=== PATIENT | male | born 1975 ===

== ENCOUNTER 2020-07-16 15:55 | Outpatient (REF) | payer OTHER, SELFPAY | END 2020-07-16 15:56 | disposition home or self-care (01) | LOC: HO.LAB 15:55 | PROVIDERS: Visit Provider Internal Medicine | DX: Z20.828 Contact with and (suspected) exposure to other viral communicable diseases (principal) | CPT/HCPCS: C9803; U0003 ==

== ENCOUNTER 2020-10-01 09:04 | Outpatient (REF) | payer OTHER, SELFPAY | END 2020-10-01 09:05 | disposition home or self-care (01) | LOC: HO.LAB 09:04 | PROVIDERS: Visit Provider Internal Medicine | DX: Z20.822 Contact with and (suspected) exposure to COVID-19 (principal) | CPT/HCPCS: 36415; C9803; U0003; U0005 ==

== ENCOUNTER 2020-10-25 12:50 | Outpatient (REF) | payer OTHER, SELFPAY | END 2020-10-25 12:51 | disposition home or self-care (01) | LOC: HO.LAB 12:50 | PROVIDERS: Visit Provider Internal Medicine | DX: Z20.822 Contact with and (suspected) exposure to COVID-19 (principal) | CPT/HCPCS: 36415; C9803; U0003; U0005 ==

== ENCOUNTER 2021-02-25 07:54 | Emergency (ER) | payer SELFPAY ==
--- NOTE | ~2021-02-25 | XR_ITS ---
EXAMINATION: XR THORACIC SPINE CLINICAL INFORMATION: Upper back pain COMPARISON: None TECHNIQUE: 3 views of the thoracic spine were obtained. FINDINGS: Bone alignment is normal. No fracture or dislocation is seen. There is mild degenerative degenerative disc disease of the lower thoracic spine. Paraspinal soft tissues are unremarkable. XR/XR thoracic spine 3V IMPRESSION: Mild degenerative changes of the lower thoracic spine.
[2021-02-25 08:26] VITALS: BP 111/71; PULSE 47; RESP 16; TEMP 36.4; O2SAT 99; BMI 26.7
--- NOTE | 2021-02-25 08:57 | ED_ITS ---
HPI - Back Pain/Injury General Chief Complaint: Back Pain/Injury Stated Complaint: upper back pain Time Seen by Provider: 02/25/21 09:38 Source: patient Mode of arrival: ambulatory Limitations: no limitations History of Present Illness HPI Narrative: Patient presents to ED for upper back pain for a month that worsens yesterday was due to doing Martial arts.. Patient states for about 1 month having upper back pain on movement. 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 Patient states maybe pulled a muscle but just wanting to make sure there was no fracture in the spine. Patient does not want any pain medication. Patient denies being an IV drug user. Patient denies any urinary or bowel incontinence. Patient denies any recent blunt trauma to the back. Patient states no chest pain or shortness of breath. Patient denies any abdominal pain, dysuria, hematuria, flank pain, fever, or chills. Related Data Previous Rx's Medication Instructions Recorded naproxen 500 mg PO BID PRN #20 tab 02/25/21 Allergies Allergy/AdvReac Type Severity Reaction Status Date / Time No Known Allergies Allergy Unverified 04/29/20 15:40 [No Known Allergies*] Review of Systems Review of Systems: Yes all other systems are reviewed and are negative Constitutional: Constitutional: Reports as per HPI and Reports no additional constitutional complaints Eyes: Eyes: Reports as per HPI and Reports no additional eye complaints ENT: Reports system reviewed and no additional complaints, except as documented and Reports as per HPI Cardiovascular: Cardiovascular: Reports as per HPI and Reports no additional cardiovascular complaints Respiratory: Respiratory: Reports as per HPI and Reports no additional respiratory complaints Gastrointestinal: Gastrointestinal: Reports as per HPI and Reports no additional gastrointestinal complaints Genitourinary: Genitourinary: Reports no additional male genitourinary complaints and Reports as per HPI Musculoskeletal: Musculoskeletal: Reports no additional musculoskeletal complaints, Reports as per HPI and Reports back pain Neurologic: Reports system reviewed and no additional complaints, except as documented and Reports as per HPI Psychiatric: Psychiatric: Reports no additional psychiatric complaints and Reports as per HPI [facility] Past Medical History Medical History (Updated 02/25/21 @ 10:09 by JOSE M Can) No known health problems Social History Social History Alcohol intake: never Patient Tobacco Use Status: Never used Tobacco Use of substances other than those prescribed or required for medical reasons: No Advance Directives: No Advance Directives Information Provided: No Physical Exam Vital Signs: Vital Signs: Last Vital Signs Temp 98.7 F 02/25/21 10:02 Pulse 43 L 02/25/21 10:02 Resp 16 02/25/21 10:02 BP 105/70 02/25/21 10:02 Pulse Ox 99 02/25/21 10:02 Body Mass Index 26.7 Const: General: cooperative, healthy appearing, comfortable, no acute distress, well developed, alert and awake Orientation/consciousness: patient oriented x3 HENMT: Head: Yes normal to inspection, Yes No palpable skull fracture present, Yes normocephalic, Yes atraumatic and No abrasion Eyes: General: appearance normal, both eyes and all related structures Neck: Neck: Yes normal visual inspection, Yes full ROM, Yes no lymphadenopathy, Yes no meningeal signs, Yes trachea midline, Yes supple and No tender Chest: Chest palpation & inspection: normal inspection of the chest and normal palpation of entire chest wall Resp: Effort & Inspection: normal respiratory effort and able to speak in co mplete sentences Auscultation: clear to auscultation bilaterally Cardio: Jugular venous distension: no JVD Heart sounds: S1 normal heart sound present and S2 normal heart sound present GI: Inspection: Yes normal to inspection and No abdominal wall ecchymosis Palpation (GI): Soft to palpation, not firm, nontender, no guarding and not rigid : General: No CVA tenderness and Yes no CVA tenderness Back/Spine/Pelvis: Back: no CVA tenderness, No CVA tenderness and back tenderness (thoracic mild. ) Skin: General skin exam: no rashes or lesions noted and elasticity normal Neuro: General: patient oriented x3, gait normal, no meningeal signs and CN's II-XI intact bilaterally Cranial nerves: Yes CN's II-XII intact bilaterally Extrem: General: Yes normal to inspection and Yes full ROM Psych: Appearance: grossly normal, well kempt and not disheveled Course Course Course Narrative: Patient does not want any pain medication. Patient will have spine x-ray to rule out any fractures. Patient denies any history of drug use. not suspecting any epidural abscess. Reevaluation(s) Reevaluation #1: Patient x-ray shows thoracic degenerative disc disease. Patient heart rate still in the 40s. Patient states he runs a lot and works out alot. 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 Will do basic EKG Time: 10:08 Reevaluation #2: EKG shows sinus bradycardia. Heart Monitor patient in 40s. Patient states his heart rate has gone low as 30s in the past before and he is being evaluated by his primary care provider once again states he was told his heart rate was low due to is exercising and consistent running. Patient is safe for discharge. Patient is not dizzy or having any other symptoms Time: 10:16 MDM - Back Pain/Injury MDM Narrative Medical decision making narrative: Thoracic Discharge Plan Discharge Clinical Impression: Radiculopathy, thoracic region Patient Disposition: Home, Self-Care Instructions: Degenerative Disc Disease (ED) Additional Instructions: X-ray shows thoracic degenerative disc disease which is arthritis of the spine. Return to the ED immediately if back pain worsens, development of urinary/bowel incontinence, chest pain, shortness of breath, abdominal pain, dysuria, hematuria, flank pain, fever, chills, or any other concerning symptoms. Please follow up with PCP Prescriptions: New naproxen 500 mg tablet 500 mg PO BID PRN (Reason: pain) Qty: 20 RF: 0 Stand Alone Forms: Work/School Release Interventions: ED Discharge Assessment Last Done: 02/25/21 10:30 Discharge Date/Time: 02/25/21 10:33 Print Language: Hebrew
[2021-02-25 10:02] VITALS: BP 105/70; PULSE 43; RESP 16; TEMP 37.1; O2SAT 99
--- NOTE | 2021-02-25 10:09 | ECG_ITS ---
Test Reason : BRADYCARDIA Blood Pressure : / mmHG Vent. Rate : 036 BPM Atrial Rate : 036 BPM P-R Int : 142 ms QRS Dur : 086 ms QT Int : 464 ms P-R-T Axes : 014 066 059 degrees QTc Int : 358 ms Marked sinus bradycardia Abnormal ECG When compared with ECG of 27-SEP-2011 09:43, Vent. rate has decreased BY 22 BPM Nonspecific T wave abnormality no longer evident in Anterior leads QT has shortened Referred By: Rock Saucedo Electronically Signed By:Bronson Valle
== END 2021-02-25 10:33 | disposition home or self-care (01) ==
PROVIDERS: Emergency Provider Emergency Medicine
DX: M51.14 Intervertebral disc disorders with radiculopathy, thoracic region (principal); R00.1 Bradycardia, unspecified
CPT/HCPCS: 72072; 93005; 99283; 99284

== ENCOUNTER 2021-03-14 08:49 | Outpatient (REF) | payer OTHER, SELFPAY | END 2021-03-14 08:50 | disposition home or self-care (01) | LOC: HO.LAB 08:49 | PROVIDERS: Visit Provider Internal Medicine | DX: Z20.822 Contact with and (suspected) exposure to COVID-19 (principal) | CPT/HCPCS: C9803; U0003; U0005 ==

== ENCOUNTER 2021-04-19 11:35 | Outpatient (REF) | payer OTHER, SELFPAY | END 2021-04-19 11:36 | disposition home or self-care (01) | LOC: HO.LAB 11:35 | PROVIDERS: Visit Provider Internal Medicine | DX: Z20.822 Contact with and (suspected) exposure to COVID-19 (principal) | CPT/HCPCS: C9803; U0003; U0005 ==

== ENCOUNTER 2021-06-23 19:06 | Emergency (ER) | payer SELFPAY ==
--- NOTE | ~2021-06-23 | XR_ITS ---
EXAMINATION: XR SHOULDER, RIGHT CLINICAL INFORMATION: Evaluate for shoulder injury. COMPARISON: None TECHNIQUE: AP external rotation, Grashey, scapular Y, and axillary views of the right shoulder. FINDINGS: There is mild acromioclavicular osteoarthritis. Glenohumeral joint is well preserved. No fracture. Alignment is anatomic. Soft tissues are normal with no abnormal calcifications. XR/XR shoulder RT min 2V IMPRESSION: No acute fractures or malalignment. Mild degenerative osteoarthritis of the acromioclavicular joint.
[2021-06-23 19:09] VITALS: BP 128/78; PULSE 73; RESP 18; TEMP 36.8; O2SAT 99; BMI 26.6
--- NOTE | 2021-06-23 20:21 | ED.EXTPRO ---
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 He did not hear any pops or snaps during the roll but had pain in his right upper and anterior shoulder shortly after. He reports pain is worse with ROM, specifically abduction. 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 He denies weakness, numbness, tingling. No neck pain. MD Complaint: joint paint Onset (ago): day(s) (2) Pain Consistency: constant Location: right and upper extremity Severity scale (1-10): 7 Quality: aching and sharp Radiation: none Relieving factors: medication and rest Exacerbating factors: range of motion and palpation Associated symptoms: denies other symptoms Related Data Previous Rx's Medication Instructions Recorded naproxen 500 mg tablet 500 mg PO BID PRN #20 tab 02/25/21 cyclobenzaprine 10 mg tablet 10 mg PO TID PRN #8 tab 06/23/21 ibuprofen 600 mg tablet 600 mg PO Q8H PRN #20 tab 06/23/21 lidocaine 5 % topical patch 1 patch TOPICAL DAILY #15 ea 06/23/21 Allergies Allergy/AdvReac Type Severity Reaction Status Date / Time No Known Allergies Allergy Verified 06/23/21 19:09 [No Known Allergies*] Review of Systems Review of Systems: Constitutional: No Fever, No Chills Cardiovascular: No Chest Pain, No SOB Gastrointestinal: No Nausea, No Vomiting Musculoskeletal: + joint pain, No Myalgias Skin: No Skin Lesions, No rash Neuro: No Weakness, No Numbness Heme/Lymph: No Bruising, No Lymphadenopathy PMFSH Past Medical History Medical History (Updated 06/24/21 @ 00:02 by Background Daemon) No known health problems Social History Social History Alcohol intake: never Patient Tobacco Use Status: Never used Tobacco Advance Directives: No Advance Directives Information Provided: No Physical Exam Vital Signs: Vital Signs: Last Vital Signs Temp 98.3 F 06/23/21 19:09 Pulse 73 06/23/21 19:09 Resp 18 06/23/21 19:09 BP 128/78 06/23/21 19:09 Pulse Ox 99 06/23/21 19:09 Body Mass Index 26.6 Appearance: Alert. Oriented X3. No acute distress. HEENT: normal inspection CVS: Normal heart rate and rhythm. Pulses normal. Respiratory: No respiratory distress. Skin: Skin warm and dry. Normal skin color. Normal skin turgor. No rashes. Extremities: normal inspection of the right shoulder, tenderness to the AC joint with pain on passive and active abduction. NV intact distally. Normal strength of UE. No scapular tenderness. Neuro: Oriented X 3. No motor deficit. No sensory deficit. Course Course Course Narrative: 38-year-old male presenting with right-sided shoulder pain after he rolled on it 2 days ago. He has tenderness over the AC joint on the lateral aspect of the shoulder. Pain with Abduction. X-ray showing some mild osteoarthritis but no acute fracture or dislocation. No AC joint separation. Given his pain limited range of motion will placed in sling for comfort. Will give NSAID for symptomatic relief and have him follow-up with orthopedics for further evaluation. Patient is agreeable with plan is stable for discharge home. Discharge Plan Discharge Clinical Impression: Acute shoulder pain Patient Disposition: Home, Self-Care Instructions: Shoulder Sprain (ED), Shoulder Pain (ED) Additional Instructions: Your x-ray today showed mild osteoarthritis. No acute fracture or dislocation. Recommend rest and immobilization with a sling provided for the next 2 days. Take the prescribed anti-inflammatory around the clock for the next 2 days, take with food. Recommend following with orthopedics for further evaluation. Limit use and lifting with the right arm until evaluated by orthopedics. If you develop new or worsening symptoms call 911 or come back to the ER for further evaluation. Prescriptions: New cyclobenzaprine 10 mg tablet 10 mg PO TID PRN (Reason: muscle spasm) Qty: 8 RF: 0 ibuprofen 600 mg tablet 600 mg PO Q8H PRN (Reason: pain) Qty: 20 RF: 0 lidocaine 5 % adhesive patch,medicated 1 patch topical DAILY Qty: 15 RF: 0 No Action naproxen 500 mg tablet 500 mg PO BID PRN (Reason: pain) Qty: 20 RF: 0 Referrals: Giuliana Marrufo PA-C [Phys[facility]] - 2 days (right shoulder pain ) Stand Alone Forms: Work/School Release Interventions: ED Discharge Assessment Last Done: 06/23/21 20:50 Discharge Date/Time: 06/23/21 20:53
== END 2021-06-23 20:53 | disposition home or self-care (01) ==
PROVIDERS: Emergency Provider Internal Medicine
DX: M25.511 Pain in right shoulder (principal)
CPT/HCPCS: 73030; 96372; 99284

== ENCOUNTER 2021-10-18 09:00 | Emergency (ER) | payer SELFPAY ==
[2021-10-18 11:10] VITALS: BP 133/84; PULSE 73; RESP 18; TEMP 37.6; O2SAT 97; BMI 26.6
== END 2021-10-18 11:43 | disposition left against medical advice (07) ==
PROVIDERS: Emergency Provider Emergency Medicine
DX: M79.605 Pain in left leg (principal)
CPT/HCPCS: 99281; 99282

== ENCOUNTER 2022-07-03 12:50 | Emergency (ER) | payer SELFPAY ==
--- NOTE | ~2022-07-03 | CT_ITS ---
EXAMINATION: CT HEAD WITHOUT CONTRAST CLINICAL INFORMATION: Mid back of the head. Headache with concussion. COMPARISON: None TECHNIQUE: Contiguous axial imaging was performed from the skull base to vertex without intravenous administration of contrast. This CT examination was performed using dose optimization techniques as appropriate, variously including the following: *Automated exposure control *Adjustment of mA and/or kV according to patient size (this includes techniques or standardized protocols for targeted exams where dose is matched to indication/reason for exam; i.e. extremities or head) *Use of iterative reconstruction technique DLP: 665 mGy-cm FINDINGS: There is no acute intra-axial, extra-axial bleed, masses or midline shift there is no acute infarction evolution. The stauffer to white matter difference is maintained normal. The lateral ventricles are symmetrical in size and configuration without enlargement. Bone windows reveal no calvarial abnormality. No scalp soft tissue abnormality seen. There is a moderate-sized polyp or retention cyst left and a small polyp right maxillary sinus. Rest of the paranasal sinuses are well-aerated and clear. CT/CT head/brain wo IV con IMPRESSION: 1. No acute intracranial process seen. 2. Bilateral maxillary sinus polyps or retention cysts.
--- NOTE | 2022-07-03 13:19 | ED.HEATRA ---
HPI - Head Injury General Chief complaint: Head Injury Stated complaint: head inj non wri Time Seen by Provider: 07/03/22 15:20 Related Data Previous Rx's Medication Instructions Recorded naproxen 500 mg tablet 500 mg PO BID PRN pain #20 tabs 02/25/21 cyclobenzaprine 10 mg tablet 10 mg PO TID PRN muscle spasm #8 06/23/21 tabs ibuprofen 600 mg tablet 600 mg PO Q8H PRN pain #20 tabs 06/23/21 lidocaine 5 % topical patch 1 patch topical DAILY #15 ea 06/23/21 Allergies Allergy/AdvReac Type Severity Reaction Status Date / Time No Known Allergies Allergy Verified 06/23/21 19:09 [No Known Allergies*] [facility] Past Medical History Medical History No known health problems Social History Social History Alcohol intake: former Patient Tobacco Use Status: Never used Tobacco Smoked in Last 30 Days: Yes Substance Use Type: Marijuana Advance Directives: No Advance Directives Information Provided: No Physical Exam Vital Signs: Vital Signs: Last Vital Signs Temp 96.8 F 07/03/22 13:20 Pulse 50 07/03/22 15:51 Resp 16 07/03/22 15:51 BP 129/66 07/03/22 15:51 Pulse Ox 99 07/03/22 15:51 O2 Del Method 07/03/22 15:51 BMI result Body Mass Index 26.6 Course Course Course Narrative: 47 year old male presents to the ED after hitting his head. 1/4 pack a day smoker otherwise healthy. He states he was working at [employer] and a 2 * 4 hit him in the head and has had dizziness since then. Migraine history he states he has had multiple concussions as well. HE takes tylenol for his head and excedrin migraine. He took tylenol this morning. Pain is similiar to previous migraines and concussion. No deficits. No fever chills cough. He has loss of appetite and nausea without vomiting Neuro exam normal. I will send for CT and give patient toradol while waiting. Medications Administered Discontinued Medications Generic Name Dose Route Start Last Admin Trade Name Freq PRN Reason Stop Dose Admin Sodium Chloride 1,000 mls @ 999 mls/hr 07/03/22 13:30 07/03/22 16:00 Ns IV 07/03/22 14:30 Not Given .Q1H1M GREG Ketorolac Tromethamine 15 mg 07/03/22 13:25 07/03/22 13:32 Ketorolac Tromethamine 30 Mg/Ml Vial IM 07/03/22 13:26 15 mg ONCE ONE Administration Discharge Plan Discharge Clinical Impression: Concussion without loss of consciousness Patient Disposition: Home, Self-Care Instructions: Concussion (ED) Additional Instructions: Limit screen time Get plenty of rest Avoid strenuous activities until your asymptomatic Return for worsening symptoms Prescriptions: No Action naproxen 500 mg tablet 500 mg PO BID PRN (Reason: pain) Qty: 20 0RF cyclobenzaprine 10 mg tablet 10 mg PO TID PRN (Reason: muscle spasm) Qty: 8 0RF ibuprofen 600 mg tablet 600 mg PO Q8H PRN (Reason: pain) Qty: 20 0RF lidocaine 5 % adhesive patch,medicated 1 patch topical DAILY Qty: 15 0RF Rx Instructions: leave on most painful area for up to 12 hrs Referrals: Physician,None [Primary Care Provider] - Stand Alone Forms: Work/School Release Interventions: ED Discharge Assessment Last Done: 07/03/22 16:02 Discharge Date/Time: 07/03/22 16:02
[2022-07-03 13:20] VITALS: BP 123/48; PULSE 51; RESP 198; TEMP 36; O2SAT 97; BMI 26.6
[2022-07-03] MEDS: Ketorolac Tromethamine 30 MG/ML VIAL 15 MG IM (13:32)
--- NOTE | 2022-07-03 15:49 | ED_ITS ---
HPI - Head Injury General Chief complaint: Head Injury Stated complaint: head inj non wri Time Seen by Provider: 07/03/22 15:20 Source: patient Mode of arrival: ambulatory Limitations: no limitations History of Present Illness HPI Narrative: 47-year-old male here with reports of headache, dizziness, photophobia, nausea and vomiting after head injury on Sunday. Patient reports a 4 x 4 being hit his head. No loss of consciousness. Initially at headache with some nausea and vomiting and light sensitivity. Symptoms are improving the patient still has mild headache and nausea. No neck pain, weakness, numbness, tingling. No chest pain or abdominal pain. Patient has history of multiple concussions in the past Related Data Previous Rx's Medication Instructions Recorded naproxen 500 mg tablet 500 mg PO BID PRN pain #20 tabs 02/25/21 cyclobenzaprine 10 mg tablet 10 mg PO TID PRN muscle spasm #8 06/23/21 tabs ibuprofen 600 mg tablet 600 mg PO Q8H PRN pain #20 tabs 06/23/21 lidocaine 5 % topical patch 1 patch topical DAILY #15 ea 06/23/21 Allergies Allergy/AdvReac Type Severity Reaction Status Date / Time No Known Allergies Allergy Verified 06/23/21 19:09 [No Known Allergies*] Review of Systems Review of Systems: Yes all other systems are reviewed and are negative Constitutional: Constitutional: Reports no additional constitutional complaints, Denies body ache(s), Denies chills, Denies fever(s), Reports headache(s) and Denies weakness Eyes: Eyes: Reports no additional eye complaints, Denies change in vision and Reports photophobia ENT: Reports system reviewed and no additional complaints, except as documented, Reports dizziness, Reports headache(s), Denies nasal congestion, Denies nasal discharge and Denies neck pain Cardiovascular: Cardiovascular: Reports no additional cardiovascular complaints, Denies chest pain, Denies leg edema and Denies dyspnea Respiratory: Respiratory: Reports no additional respiratory complaints, Denies cough and Denies dyspnea Gastrointestinal: Gastrointestinal: Reports no additional gastrointestinal complaints, Denies abdominal pain, Denies diarrhea, Reports nausea and Reports vomiting Genitourinary: Genitourinary: Denies urinary incontinence Musculoskeletal: Musculoskeletal: Reports no additional musculoskeletal complaints, Denies back pain, Denies arthralgias, Denies joint swelling, Denies neck pain, Denies numbness and Denies tingling Integumentary/Breasts: Skin/Breast: Reports system reviewed and no additional complaints, except as docu and Denies rash Neurologic: Reports system reviewed and no additional complaints, except as documented, Denies Abnormal speech present, Reports dizziness, Reports headache(s), Denies numbness, Denies tingling and Denies weakness PMFSH Past Medical History Attestation statement: The following information was validated with the patient. Source: old records reviewed and nursing notes reviewed Medical History No known health problems Social History Social History Alcohol intake: former Patient Tobacco Use Status: Never used Tobacco Smoked in Last 30 Days: Yes Substance Use Type: Marijuana Advance Directives: No Advance Directives Information Provided: No Physical Exam Vital Signs: Vital Signs: Last Vital Signs Temp 96.8 F 07/03/22 13:20 Pulse 50 07/03/22 15:51 Resp 16 07/03/22 15:51 BP 129/66 07/03/22 15:51 Pulse Ox 99 07/03/22 15:51 O2 Del Method 07/03/22 15:51 BMI result Body Mass Index 26.6 Const: General: cooperative, healthy appearing, comfortable and no acute distress Orientation/consciousness: patient oriented x3 Limitations: no limitations HEENT: Head: Yes normal to inspection Ears: hearing grossly normal bilaterally and TM's normal bilaterally General nose exam: Normal external nose present Face and sinus: Yes normal facial exam Mouth: Normal oral and palatal mucosa present Throat: Yes posterior oropharynx normal, Yes tonsils normal and Yes uvula midline Eyes: General: appearance normal, both eyes and all related structures Pupils: Equal, round and reactive pupils present Direct Ophthalmoscopy: photophobia Neck: Neck: Yes normal visual inspection, Yes full ROM, Yes no lymphadenopathy and Yes no meningeal signs Chest: Chest palpation & inspection: normal inspection of the chest Resp: Effort & Inspection: normal respiratory effort Auscultation: clear to auscultation bilaterally Cardio: Rate: regular rate Rhythm: regular rhythm Peripheral pulses: Peripheral pulses 2+ throughout GI: Inspection: Yes normal to inspection Palpation (GI): Soft to palpation and nontender Auscultation: normal bowel sounds Back/Spine/Pelvis: Thoracic/Lumbar Spine: thoracic and lumbar spine normal to inspection Skin: General skin exam: no rashes or lesions noted Neuro: General: patient oriented x3, moves all extremities, no meningeal signs, no focal motor deficits and normal sensation to monofilament Cranial nerves: Yes CN's II-XII intact bilaterally, Yes Equal, round and reactive pupils present, Yes Bilaterally intact EOM present, Yes Nystagmus not present, Yes Normal facial strength present and Yes Midline tongue present Cognition (Neuro): normal cognition Speech: No Abnormal speech present Gait exam (Neuro): Normal gait present Motor exam (neuro): 5/5 motor strength present throughout Sensory Exam: Normal double simultaneous stimulation for sensation Extrem: General: Yes normal to inspection Course Course Course Narrative: CT head negative for infection. Likely concussion. Patient is tolerating p.o. Reviewed head injury care at home. Reviewed worrisome signs and symptoms of when to return to the emergency room. Comfortable plan for discharge home. Medications Administered Discontinued Medications Generic Name Dose Route Start Last Admin Trade Name Freq PRN Reason Stop Dose Admin Sodium Chloride 1,000 mls @ 999 mls/hr 07/03/22 13:30 07/03/22 16:00 Ns IV 07/03/22 14:30 Not Given .Q1H1M GREG Ketorolac Tromethamine 15 mg 07/03/22 13:25 07/03/22 13:32 Ketorolac Tromethamine 30 Mg/Ml Vial IM 07/03/22 13:26 15 mg ONCE ONE Administration MDM - Head Injury MDM Narrative Medical decision making narrative: This is a 47-year-old male with history of multiple concussions who presents with headache, nausea, vomiting, dizziness, photophobia after head injury which occurred Sunday. On arrival normal neuro exam. No focal deficits. Will check CT head to rule out intracranial hemorrhage. Likely concussion Medical Records Attestation: I reviewed the patient's medical records. Lab Data Attestation: I reviewed the patient's lab results. Imaging Data CT scan - head: Attestation: I personally reviewed and interpreted this imaging study as follows: Radiologist's impression: [address] [address] [address] Scan Report Signed Patient: Roger Ni MR#: [id number] : 1975 Acct:[id number] Age/Sex: 47 / M ADM Date: 07/03/22 Loc: HO.ED Attending Dr: Ordering Physician: Danial Perry DO Date of Service: 07/03/22 Procedure(s): CT head/brain wo IV con Accession Number(s): [id number] cc: Danial Perry DO~ EXAMINATION: CT HEAD WITHOUT CONTRAST CLINICAL INFORMATION: Mid back of the head. Headache with concussion.? COMPARISON: None TECHNIQUE: Contiguous axial imaging was performed from the skull base to vertex without intravenous administration of contrast. This CT examination was performed using dose optimization techniques as appropriate, variously including the following: *Automated exposure control *Adjustment of mA and/or kV according to patient size (this includes techniques or standardized protocols for targeted exams where dose is matched to indication/reason for exam; i.e. extremities or head) *Use of iterative reconstruction technique DLP: 665 mGy-cm FINDINGS: There is no acute intra-axial, extra-axial bleed, masses or midline shift there is no acute infarction evolution. The stauffer to white matter difference is maintained normal. The lateral ventricles are symmetrical in size and configuration without enlargement. Bone windows reveal no calvarial abnormality. No scalp soft tissue abnormality seen. There is a moderate-sized polyp or retention cyst left and a small polyp right maxillary sinus. Rest of the paranasal sinuses are well-aerated and clear. ? CT/CT head/brain wo IV con IMPRESSION: 1.? No acute intracranial process seen. 2.? Bilateral maxillary sinus polyps or retention cysts. ? Discharge Plan Discharge Clinical Impression: Concussion without loss of consciousness Patient Disposition: Home, Self-Care Instructions: Concussion (ED) Additional Instructions: Limit screen time Get plenty of rest Avoid strenuous activities until your asymptomatic Return for worsening symptoms Prescriptions: No Action naproxen 500 mg tablet 500 mg PO BID PRN (Reason: pain) Qty: 20 0RF cyclobenzaprine 10 mg tablet 10 mg PO TID PRN (Reason: muscle spasm) Qty: 8 0RF ibuprofen 600 mg tablet 600 mg PO Q8H PRN (Reason: pain) Qty: 20 0RF lidocaine 5 % adhesive patch,medicated 1 patch topical DAILY Qty: 15 0RF Rx Instructions: leave on most painful area for up to 12 hrs Referrals: Physician,None [Primary Care Provider] - Stand Alone Forms: Work/School Release Interventions: ED Discharge Assessment Last Done: 07/03/22 16:02 Discharge Date/Time: 07/03/22 16:02
[2022-07-03 15:51] VITALS: BP 129/66; PULSE 50; RESP 16; O2SAT 99
--- NOTE | 2022-07-03 15:57 | PC.NURSE ---
patient a/ox4 . madhurla . heart rate regular at 50 beats per minute . lungs clear throughout . patient has been to [facility] for images , results pending . provider at bedside . skin pink warm and dry . abdomen soft not tender . positive bowel sounds in all four quadrants . full range of motion in all extremities . patient aware of plan of care .
--- NOTE | 2022-07-03 16:00 | PC.NURSE ---
patient a/ox4 . VSS . breathing even and unlabored . went over discharge instructions as ordered by provider . patient to return if symptoms worsen . patient currently has no primary care provider given list of providers currently accepting patients . patient has no questions at this time .
== END 2022-07-03 16:02 | disposition home or self-care (01) ==
PROVIDERS: Emergency Provider Emergency Medicine
DX: S06.0X0A Concussion without loss of consciousness, initial encounter (principal); W22.8XXA Striking against or struck by other objects, initial encounter; Y93.89 Activity, other specified; Y92.9 Unspecified place or not applicable; Y99.9 Unspecified external cause status
CPT/HCPCS: 70450; 96372; 99284; J1885

== ENCOUNTER 2023-01-16 18:21 | Emergency (ER) | payer SELFPAY ==
--- NOTE | ~2023-01-16 | CT_ITS ---
EXAMINATION: CT head/brain wo IV con CLINICAL INFORMATION: Reason for Exam head trauma, headache COMPARISON: CT head without contrast 07/03/2022 TECHNIQUE: Contiguous axial imaging was performed from the skull base to vertex without intravenous contrast. Sagittal and coronal reformatted images were obtained. This CT examination was performed using dose optimization techniques as appropriate, variously including the following: * Automated exposure control * Adjustment of mA and/or kV according to patient size (this includes techniques or standardized protocols for targeted exams where dose is matched to indication/reason for exam; i.e. extremities or head) Use of iterative reconstruction technique DLP: 591.67 mGy-cm FINDINGS: No acute osseous or soft tissue abnormality. The mastoids are clear. Left maxillary sinus mucous retention cyst. There is no evidence of acute intracranial hemorrhage or territorial infarction. No abnormal mass effect or midline shift is seen. Waterman to white matter differentiation is well preserved. No extra-axial fluid collections are identified. No hydrocephalus. No significant volume loss. There is no abnormal attenuation within the brain parenchyma. CT/CT head/brain wo IV con IMPRESSION: No acute intracranial abnormality including hemorrhage, mass effect, hydrocephalus, or acute territorial edematous infarction.
--- NOTE | 2023-01-16 19:20 | ED_ITS ---
HPI - Head Injury General Stated complaint: head concussion?/ right elbow Related Data Previous Rx's Medication Instructions Recorded naproxen 500 mg tablet 500 mg PO BID PRN pain #20 tabs 02/25/21 cyclobenzaprine 10 mg tablet 10 mg PO TID PRN muscle spasm #8 06/23/21 tabs ibuprofen 600 mg tablet 600 mg PO Q8H PRN pain #20 tabs 06/23/21 lidocaine 5 % topical patch 1 patch topical DAILY #15 ea 06/23/21 Allergies Allergy/AdvReac Type Severity Reaction Status Date / Time No Known Allergies Allergy Verified 06/23/21 19:09 [No Known Allergies*] [facility] Past Medical History Medical History No known health problems Social History Social History Alcohol intake: former Patient Tobacco Use Status: Never used Tobacco Substance Use Type: Marijuana Course Course Course Narrative: RME - 47 yo male with history of concussion about 6 months ago presents to the ER for evaluation after he had a head injury at work today. He stood up and hit his head hard on a pipe. Fell forward and hit his right elbow on the ground. Co- worker assisted him up. Could have had brief LOC. Reports headache, nausea, slight blurred vision, similar to his prior concussion. Plan: CT head Discharge Plan Discharge Prescriptions: No Action naproxen 500 mg tablet 500 mg PO BID PRN (Reason: pain) Qty: 20 0RF cyclobenzaprine 10 mg tablet 10 mg PO TID PRN (Reason: muscle spasm) Qty: 8 0RF ibuprofen 600 mg tablet 600 mg PO Q8H PRN (Reason: pain) Qty: 20 0RF lidocaine 5 % adhesive patch,medicated 1 patch topical DAILY Qty: 15 0RF Rx Instructions: leave on most painful area for up to 12 hrs
[2023-01-16 19:22] VITALS: BP 109/64; PULSE 56; RESP 16; TEMP 36.2; O2SAT 98; BMI 25.7
--- NOTE | 2023-01-16 21:25 | ED_ITS ---
HPI - General Adult General Chief complaint: General Medical Stated complaint: head concussion?/ right elbow Time Seen by Provider: 01/16/23 21:20 History of Present Illness HPI narrative: Patient a 47-year-old male presents today with having he had his head against a metal pipe when he was trying to corn picker his keys. Positive dizziness there was no loss of consciousness no vomiting no focal weakness. Patient is from home. He is not on any blood thinners no systemic complaints. Ambulates with normal gait Related Data Previous Rx's Medication Instructions Recorded naproxen 500 mg tablet 500 mg PO BID PRN pain #20 tabs 02/25/21 cyclobenzaprine 10 mg tablet 10 mg PO TID PRN muscle spasm #8 06/23/21 tabs ibuprofen 600 mg tablet 600 mg PO Q8H PRN pain #20 tabs 06/23/21 lidocaine 5 % topical patch 1 patch topical DAILY #15 ea 06/23/21 Allergies Allergy/AdvReac Type Severity Reaction Status Date / Time No Known Allergies Allergy Verified 06/23/21 19:09 [No Known Allergies*] Review of Systems Review of Systems: Positive head injury. Positive mild nausea Yes all other systems are reviewed and are negative [facility] Past Medical History Attestation statement: The following information was validated with the patient. Medical History No known health problems Social History Social History Alcohol intake: former Patient Tobacco Use Status: Never used Tobacco Substance Use Type: Marijuana Physical Exam ED Vital Signs: Vital Signs - 24 hr 01/16/23 19:22 Temperature 97.1 F Pulse Rate 56 Respiratory Rate 16 Blood Pressure 109/64 Pulse Oximetry 98 Oxygen Delivery Method Room Air BMI result Body Mass Index 25.7 Appearance: Alert. Oriented X3. No acute distress. Eyes: Pupils equal, round and reactive to light. ENT: Pharynx normal. Neck: Normal inspection. Neck supple. No lymph nodes noted. No crepitus CVS: Normal heart rate and rhythm. Pulses normal. Normal S1 and S2 Respiratory: No respiratory distress. Breath sounds normal. No Wheezing. No rales Abdomen: Soft and nontender. No rigidity. No distention. good BS x4 Skin: Skin warm and dry. Normal skin color. Normal skin turgor. Extremities: No lower extremity edema. Neurovascular intact to all extremities. No Lacerations. No Rash Neuro: Oriented X 3. No motor deficit. No sensory deficit. Moving all extermities. No slurred speech Medical Decision Making Medical Decision Making [facility] Narrative: Well-appearing no loss of consciousness. No nausea no vomiting no focal weakness. Patient not on blood thinners. CT scan of the head was done. It was grossly negative for any acute evidence of bleeding. No fracture noted patient has C-spine has no tenderness. Neurologically intact. No gross distracting injury. Patient did not need a CT of the C-spine based on nexus criteria. Will discharge patient home. Head injury precaution. Differential Diagnosis Differential Diagnoses: The differential diagnosis associated with the presentation includes Head injury, spinal injury, skull fracture, intracranial bleed Lab Data [facility] Lab Attestation statement: I reviewed the patient's lab results. Independent Interpretation I performed an independent interpretation of an: CT Scan Interpretation: CT head grossly negative Radiology Impression Discussion of test interpretation with radiology: I have reviewed the radiologist's reading. Discharge Plan Discharge Clinical Impression: Head injury Patient Disposition: Home, Self-Care Instructions: Head Injury (ED) Prescriptions: No Action naproxen 500 mg tablet 500 mg PO BID PRN (Reason: pain) Qty: 20 0RF cyclobenzaprine 10 mg tablet 10 mg PO TID PRN (Reason: muscle spasm) Qty: 8 0RF ibuprofen 600 mg tablet 600 mg PO Q8H PRN (Reason: pain) Qty: 20 0RF lidocaine 5 % adhesive patch,medicated 1 patch topical DAILY Qty: 15 0RF Rx Instructions: leave on most painful area for up to 12 hrs Referrals: Physician,Unknown J [Primary Care Provider] - 01/18/23
== END 2023-01-16 21:42 | disposition home or self-care (01) ==
LOC: HO.ED 21:39
PROVIDERS: Emergency Provider Emergency Medicine Emergency Medical Services
DX: S09.90XA Unspecified injury of head, initial encounter (principal); W22.09XA Striking against other stationary object, initial encounter; Y93.9 Activity, unspecified; Y92.019 Unspecified place in single-family (private) house as the place of occurrence of the external cause; Y99.9 Unspecified external cause status
CPT/HCPCS: 70450; 99282; 99284

== ENCOUNTER 2023-03-01 00:07 | Emergency (ER) | payer SELFPAY ==
--- NOTE | ~2023-03-01 | XR_ITS ---
EXAMINATION: XR CHEST CLINICAL INFORMATION: Chest pain COMPARISON: 02/25/2021 TECHNIQUE: Frontal view of the chest was obtained. FINDINGS: The lungs are clear with no focal consolidation. No evidence of pneumothorax, pulmonary edema, or pleural effusions. The cardiomediastinal silhouette is unremarkable. No acute osseous findings. XR/XR chest 1V IMPRESSION: No acute cardiopulmonary findings.
[2023-03-01 00:09] VITALS: BP 115/75; PULSE 51; RESP 16; TEMP 36.4; O2SAT 100; BMI 26.6
--- NOTE | 2023-03-01 00:11 | ECG_ITS ---
Test Reason : CHEST PAIN Blood Pressure : / mmHG Vent. Rate : 050 BPM Atrial Rate : 050 BPM P-R Int : 150 ms QRS Dur : 080 ms QT Int : 440 ms P-R-T Axes : 036 060 050 degrees QTc Int : 401 ms Sinus bradycardia Otherwise normal ECG When compared with ECG of 25-FEB-2021 10:12, No significant change was found Referred By: Generic ED Physician Electronically Signed By:Bronson Valle
[2023-03-01 00:32] LABS: MANUAL DIFF FLAG NO
[2023-03-01 00:38] LABS: Basophils Absolute Auto 0.1 X10*3/uL (0.0-0.2); Basophils Percent Auto 0.9 % (0-2); Eosinophils Absolute Auto 0.1 X10*3/uL (0.0-0.4); Eosinophils Percent Auto 2.4 % (0-4); Hematocrit 40.6 % (42.0-52.0); Hemoglobin 13.5 g/dl (14.0-18.0); Imm Gran Abs Auto 0.01 X10*3/uL (0.00-0.03); Imm Gran Pct Auto 0.2 % (0.0-0.4); Lymphocytes Absolute Auto 1.7 X10*3/uL (1.2-4.9); Lymphocytes Percent Auto 28.8 % (20-40); Mean Corpuscular HGB Conc 33.3 g/dl (31.0-36.0); Mean Corpuscular Hemoglobin 27.8 pg (27.0-33.0); Mean Corpuscular Volume 83.5 fL (80.0-98.0); Mean Platelet Volume 10.3 fL (9.4-12.4); Monocytes Absolute Auto 0.6 X10*3/uL (0.1-1.2); Monocytes Percent Auto 10.4 % (2-11); Neutrophils Absolute Auto 3.4 x10*3/uL (2.0-8.3); Neutrophils Percent Auto 57.3 % (45-73); Platelet Count 209 X10*3/uL (160-400); Red Blood Count 4.86 X10*6/uL (4.60-5.80); Red Cell Distribution Width 13.6 % (11.0-16.0); White Blood Count 5.9 X10*3/uL (4.8-10.8)
[2023-03-01 00:44] LABS: Anion Gap 12 (12-20); Blood Urea Nitrogen 20 mg/dL (9-16); Calcium 9.5 mg/dL (8.4-10.2); Carbon Dioxide 23 mmol/L (22-29); Chloride 108 mmol/L (96-108); Creatinine Clr Calc Pharmacy 82.2; Estimated Glomerular Filt Rate > 60; Glucose Random 122 mg/dL (60-115); Potassium 3.7 mmol/L (3.3-5.1); Sodium 139 mmol/L (135-145)
[2023-03-01 00:47] VITALS: BP 96/59; PULSE 48; RESP 18; TEMP 36.6; O2SAT 95
[2023-03-01 00:52] LABS: Troponin-I High Sensitivity < 2.7 ng/L (<3.5-35.0)
[2023-03-01 01:03] VITALS: PULSE 43
--- NOTE | 2023-03-01 01:28 | PC.NURSE ---
Assumed care of patient at 01:06am. Patient arrived from waiting room. He reports he woke up about 30 mins ago with substernal chest pain. He notes it made it difficult for him to walk. Report having smoked marijuana 4 hours ago. EKG completd and pt placed on continuous monitoring specialist showing sinus bradycardia. Bp 96/59. which pt states it is normal for him. MD made aware. Call carballo within reach. Will continue to follow plan of care.
[2023-03-01 02:00] VITALS: BP 105/63; PULSE 53; RESP 16; TEMP 36.8; O2SAT 95
--- NOTE | 2023-03-01 02:47 | ED_ITS ---
HPI - Chest Pain General Chief Complaint: Chest Pain Stated Complaint: Chest Pain Time Seen by Provider: 03/01/23 02:41 Source: patient Mode of arrival: ambulatory Limitations: no limitations History of Present Illness HPI narrative: Patient comes to the emergency room complaining of chest pain on the right side of the chest. Patient states he was sleeping and had a sharp sensation on his chest. Lasted less than a minute, self resolved. Patient is here chills, at this time is symptomatic, no shortness of breath. Related Data Previous Rx's Medication Instructions Recorded naproxen 500 mg tablet 500 mg PO BID PRN pain #20 tabs 02/25/21 cyclobenzaprine 10 mg tablet 10 mg PO TID PRN muscle spasm #8 06/23/21 tabs ibuprofen 600 mg tablet 600 mg PO Q8H PRN pain #20 tabs 06/23/21 lidocaine 5 % topical patch 1 patch topical DAILY #15 ea 06/23/21 Allergies Allergy/AdvReac Type Severity Reaction Status Date / Time No Known Allergies Allergy Verified 06/23/21 19:09 [No Known Allergies*] Review of Systems Review of Systems: Constitutional : No Weight loss, No Fever, No Chills, No Night Sweats, No Fatigu e, No Malaise ENT/Mouth : No Hearing loss, No Ear Pain, No Nasal Congestion, No Sinus Pain, No Hoarseness, No sore throat, No Rhinorrhea, No Swallowing Difficulty Eyes: No Eye Pain, No Swelling, No Redness, No Foreign Body, No Discharge, No Vision Changes Cardiovascular : Attending 1 episode of sharp chest pain that self-resolved under a minute, No SOB, No Dyspnea on Exertion, No Orthopnea, No Edema, No Palpitations Respiratory : No Cough, No Sputum, No Wheezing, No Smoke Exposure, No Dyspnea Gastrointestinal : No Nausea, No Vomiting, No Diarrhea, No Constipation, No abdominal Pain, No Hematochezia, No Melena Genitourinary : no irregular bleeding, No Dysuria, No Urinary Frequency, No Hematuria, No Urinary Incontinence, No Urgency, No Flank Pain, No Urinary Flow Changes, No Hesitancy Musculoskeletal : No joint pain, No Myalgias, No Joint Swelling Skin : No Skin Lesions, No rash Neuro : No Weakness, No Numbness, No Paresthesias, No Loss of Consciousness, No Dizziness, No Headache Psych : No Anxiety/Panic, No Depression, No SI/HI/AH/VH, No Social Issues, Heme/Lymph: No Bruising, No Bleeding,No Lymphadenopathy Endocrine : No Polyuria, No Polydipsia, No Temperature Intolerance [facility] Past Medical History Medical History No known health problems Social History Social History Alcohol intake: current Alcohol intake frequency: holidays/special occasions only Patient Tobacco Use Status: Never used Tobacco Smoked in Last 30 Days: Yes Substance Use Type: Marijuana Substance Use Frequency: Daily Substance Use Frequency Other:: 4 Last Used Substance: Hours (ago) Advance Directives: No Advance Directives Information Provided: Yes Physical Exam Vital Signs: Vital Signs: Last Vital Signs Temp 98.2 F 03/01/23 02:00 Pulse 53 03/01/23 02:00 Resp 16 03/01/23 02:00 BP 105/63 03/01/23 02:00 Pulse Ox 95 03/01/23 02:00 O2 Del Method Room Air 03/01/23 02:00 BMI result Body Mass Index 26.6 Const: Other: Appearance: Alert. Oriented X3. No acute distress. Eyes: Pupils equal, round and reactive to light. ENT: Pharynx normal. Neck: Normal inspection. Neck supple. No lymph nodes noted. No crepitus CVS: Normal heart rate and rhythm. Pulses normal. Normal S1 and S2 Respiratory: No respiratory distress. Breath sounds normal. No Wheezing. No rales Abdomen: Soft and nontender. No rigidity. No distention. Skin: Skin warm and dry. Normal skin color. Normal skin turgor. Extremities: No lower extremity edema. No Lacerations. No Rash Neuro: Oriented X 3. No motor deficit. No sensory deficit. Moving all extremities. No slurred speech. CN 2 through 12 grossly intact Psych: calm, cooperative, normal affect Medical Decision Making Medical Decision Making MDM Narrative: -in came in complaining with chest pain, initially admission was considered. Workup pending -patient has been asymptomatic. My interpretation of EKG: Sinus bradycardia, heart rate 50, no ST segment depression or elevation, no T-wave inversion, QTC 401, blood pressure 115/75. Patient states that he does a lot of physical work and regularly goes to a gym, explains bradycardia. -troponin 1. Negative, troponin 2. Negative -source of pain likely musculoskeletal -my interpretation of chest x-ray: No infiltrates, no rib fractures Differential Diagnosis Differential Diagnoses: The differential diagnosis associated with the presentation includes (ACS, costochondritis, pleurisy, muscle spasm, muscu loskeletal pain) Admission/Observation Consideration of admission/observation: Escalation of care including admission/observation considered Lab Data MDM Lab Attestation statement: I reviewed the patient's lab results. 03/01/23 00:27 03/01/23 00:27 Labs: Lab Results 03/01/23 03/01/23 03/01/23 Range/Units 00:27 00:27 00:27 WBC 5.9 (4.8-10.8) X10*3/uL RBC 4.86 (4.60-5.80) X10*6/uL Hgb 13.5 L (14.0-18.0) g/dl Hct 40.6 L (42.0-52.0) % MCV 83.5 (80.0-98.0) fL MCH 27.8 (27.0-33.0) pg MCHC 33.3 (31.0-36.0) g/dl RDW 13.6 (11.0-16.0) % Plt Count 209 (160-400) X10*3/uL MPV 10.3 (9.4-12.4) fL Immature Gran % (Auto) 0.2 (0.0-0.4) % Neut % (Auto) 57.3 (45-73) % Lymph % (Auto) 28.8 (20-40) % Rains % (Auto) 10.4 (2-11) % Eos % (Auto) 2.4 (0-4) % Baso % (Auto) 0.9 (0-2) % Lymph # (Auto) 1.7 (1.2-4.9) X10*3/uL Rains # (Auto) 0.6 (0.1-1.2) X10*3/uL Eos # (Auto) 0.1 (0.0-0.4) X10*3/uL Baso # (Auto) 0.1 (0.0-0.2) X10*3/uL Abs Immat Gran (auto) 0.01 (0.00-0.03) X10*3/uL Absolute Neuts (auto) 3.4 (2.0-8.3) x10*3/uL Absolute Nucleated RBC 0.000 (0.0-0.012) X10*3/uL Nucleated RBC % (auto) 0.0 (0.0-0.2) /100WBC Sodium 139 (135-145) mmol/L Potassium 3.7 (3.3-5.1) mmol/L Chloride 108 (96-108) mmol/L Carbon Dioxide 23 (22-29) mmol/L Anion Gap 12 (12-20) BUN 20 H (9-16) mg/dL Creatinine 0.91 (0.5-1.4) mg/dL Estim Creat Clear Calc 82.2 Estimated GFR > 60 Random Glucose 122 H (60-115) mg/dL Calcium 9.5 (8.4-10.2) mg/dL Troponin I High Sens < 2.7 (<3.5-35.0) ng/L 03/01/23 Range/Units 02:56 WBC (4.8-10.8) X10*3/uL RBC (4.60-5.80) X10*6/uL Hgb (14.0-18.0) g/dl Hct (42.0-52.0) % MCV (80.0-98.0) fL MCH (27.0-33.0) pg MCHC (31.0-36.0) g/dl RDW (11.0-16.0) % Plt Count (160-400) X10*3/uL MPV (9.4-12.4) fL Immature Gran % (Auto) (0.0-0.4) % Neut % (Auto) (45-73) % Lymph % (Auto) (20-40) % Rains % (Auto) (2-11) % Eos % (Auto) (0-4) % Baso % (Auto) (0-2) % Lymph # (Auto) (1.2-4.9) X10*3/uL Rains # (Auto) (0.1-1.2) X10*3/uL Eos # (Auto) (0.0-0.4) X10*3/uL Baso # (Auto) (0.0-0.2) X10*3/uL Abs Immat Gran (auto) (0.00-0.03) X10*3/uL Absolute Neuts (auto) (2.0-8.3) x10*3/uL Absolute Nucleated RBC (0.0-0.012) X10*3/uL Nucleated RBC % (auto) (0.0-0.2) /100WBC Sodium (135-145) mmol/L Potassium (3.3-5.1) mmol/L Chloride (96-108) mmol/L Carbon Dioxide (22-29) mmol/L Anion Gap (12-20) BUN (9-16) mg/dL Creatinine (0.5-1.4) mg/dL Estim Creat Clear Calc Estimated GFR Random Glucose (60-115) mg/dL Calcium (8.4-10.2) mg/dL Troponin I High Sens < 2.7 (<3.5-35.0) ng/L Independent Interpretation I performed an independent interpretation of an: Plain X-Ray Radiology Impression Discussion of test interpretation with radiology: I have reviewed the radiologist's reading. Radiologist Impression: FINDINGS: The lungs are clear with no focal consolidation. No evidence of pneumothorax, pulmonary edema, or pleural effusions. The cardiomediastinal silhouette is unremarkable. No acute osseous findings. XR/XR chest 1V IMPRESSION: No acute cardiopulmonary findings. Critical Care Time Critical Care Time Critical Care Time: Yes Total Critical Care Time: 45 Attestation: I have personally provided critical care time. Time includes review of lab data, radiology results, discussion with consultants, and monitoring for potential decompensation. Intervention performed as documented. Discharge Plan Discharge Clinical Impression: Atypical chest pain Patient Disposition: Home, Self-Care Instructions: Chest Pain (ED) Additional Instructions: Please follow-up with your primary care physician tomorrow. If you have any worsening or new symptoms, please return to the emergency room or call 911 Prescriptions: No Action naproxen 500 mg tablet 500 mg PO BID PRN (Reason: pain) Qty: 20 0RF cyclobenzaprine 10 mg tablet 10 mg PO TID PRN (Reason: muscle spasm) Qty: 8 0RF ibuprofen 600 mg tablet 600 mg PO Q8H PRN (Reason: pain) Qty: 20 0RF lidocaine 5 % adhesive patch,medicated 1 patch topical DAILY Qty: 15 0RF Rx Instructions: leave on most painful area for up to 12 hrs
[2023-03-01 03:27] LABS: Troponin-I High Sensitivity < 2.7 ng/L (<3.5-35.0)
== END 2023-03-01 04:13 | disposition home or self-care (01) ==
PROVIDERS: Emergency Provider Emergency Medicine
DX: R07.89 Other chest pain (principal); F12.90 Cannabis use, unspecified, uncomplicated
CPT/HCPCS: 36415; 71045; 80048; 84484; 85025; 93005; 99283; 99285

== ENCOUNTER → 2023-03-01 00:11 | Outpatient (BNV) | payer SELFPAY | PROVIDERS: Emergency Provider Emergency Medicine; Visit Provider Internal Medicine Cardiovascular Disease | DX: R00.1 Bradycardia, unspecified (principal) | CPT/HCPCS: 93010 ==

== ENCOUNTER 2023-05-09 10:31 | Emergency (ER) | payer OTHER, SELFPAY ==
[2023-05-09 10:54] VITALS: BP 130/61; PULSE 55; RESP 16; TEMP 36.6; O2SAT 99; BMI 25.7
--- NOTE | 2023-05-09 11:05 | ED_ITS ---
HPI - General Adult General Chief complaint: Back Pain/Injury Stated complaint: Back Side Pain S/P Work Injury 05/09/23 Time Seen by Provider: 05/09/23 11:05 Source: patient Mode of arrival: ambulatory Limitations: no limitations History of Present Illness HPI narrative: Patient is a 47 year old assigned male at with no reported medical history presenting to the emergency department today with right sided back pain. Patient states that he lifted a 5gallon bucket of paint and felt the right side of his back pulled and is now having pain. Patient denies any dizziness, lightheadedness, abdominal pain, nausea, vomiting, fever, chills, blurry vision, double vision, loss of vision, chest pain, difficulty breathing, shortness of breath, night sweats, pain with urination, increased urinary frequency, increase d urinary urgency, blood in his urine or stool, syncope or a near syncopal episode, bowel incontinence, bladder incontinence, bowel retention, bladder retention, or any other complaints at this time. Onset (ago): hour(s) Location: back and right Severity: mild Severity scale (1-10): 3 Quality: aching and dull Pain Consistency: constant Relieving factors: none Exacerbating factors: none Associated symptoms: denies other symptoms Treatments prior to arrival: none Related Data Previous Rx's Medication Instructions Recorded naproxen 500 mg tablet 500 mg PO BID PRN pain #20 tabs 02/25/21 cyclobenzaprine 10 mg tablet 10 mg PO TID PRN muscle spasm #8 06/23/21 tabs ibuprofen 600 mg tablet 600 mg PO Q8H PRN pain #20 tabs 06/23/21 lidocaine 5 % topical patch 1 patch topical DAILY #15 ea 06/23/21 cyclobenzaprine 5 mg tablet 5 mg PO TID PRN muscle spasm 7 05/09/23 days #21 tabs naproxen 500 mg tablet 500 mg PO BID 7 days #14 tabs 05/09/23 prednisone 20 mg tablet 20 mg PO DAILY 7 days #7 tabs 05/09/23 Allergies Allergy/AdvReac Type Severity Reaction Status Date / Time No Known Allergies Allergy Verified 06/23/21 19:09 [No Known Allergies*] Review of Systems Constitutional: Constitutional: Reports no additional constitutional complaints, Denies chills, Denies fever(s) and Denies night sweats Eyes: Eyes: Reports no additional eye complaints, Denies blurry vision, Denies change in vision, Denies diplopia, Denies eye discharge, Denies loss of vision and Denies eye pain ENT: Denies dizziness Cardiovascular: Cardiovascular: Reports no additional cardiovascular complaints, Denies chest pain, Denies lightheadedness, Denies Loss of Consciousness and Denies dyspnea Respiratory: Respiratory: Reports no additional respiratory complaints and Denies dyspnea Gastrointestinal: Gastrointestinal: Reports no additional gastrointestinal complaints, Denies abdominal pain, Denies melena, Denies hematochezia, Denies change in bowel habits and Denies change in stool character Genitourinary: Genitourinary: Reports no additional male genitourinary complaints, Denies hematuria, Denies oliguria, Denies difficulty urinating, Denies dysuria, Denies urinary frequency, Denies urinary hesitancy, Denies urinary incontinence and Denies urinary urgency Musculoskeletal: Musculoskeletal: Reports no additional musculoskeletal complaints, Reports back pain, Denies numbness and Denies tingling Neurologic: Denies dizziness, Denies loss of vision, Denies numbness and Denies tingling Psychiatric: Psychiatric: Reports no additional psychiatric complaints Endocrine: Endocrine: Reports no additional endocrine complaints Hematologic/Lymphatic: Hematologic/Lymphatic: Reports no additional hematologic/lymphatic complaints Allergic/Immunologic: Allergic/Immunologic: Reports no additional allergic/immunologic complaints PMFSH Past Medical History Attestation statement: The following information was validated with the patient. Source: old records reviewed and nursing notes reviewed Medical History No known health problems Social History Social History Alcohol intake: current Alcohol intake frequency: holidays/special occasions only Patient Tobacco Use Status: Never used Tobacco Substance Use Type: Marijuana Advance Directives: No Advance Directives Information Provided: Yes Physical Exam ED Vital Signs: Vital Signs - 24 hr 05/09/23 10:54 Temperature 98 F Pulse Rate 55 Respiratory Rate 16 Blood Pressure 130/61 Pulse Oximetry 99 Oxygen Delivery Method Room Air BMI result Body Mass Index 25.7 Const General: cooperative, no acute distress, alert and awake Nutritional Appearance: well nourished Orientation/consciousness: patient oriented x3 Limitations: no limitations HENMT Head: Yes normal to inspection and Yes atraumatic Ears: hearing grossly normal bilaterally and external ears normal General nose exam: Normal external nose present, no nasal discharge noted and no epistaxis Face and sinus: Yes normal facial exam, No abrasion and No laceration Mouth: Normal oral and palatal mucosa present, no drooling and no muffled voice Eyes General: appearance normal, both eyes and all related structures Periorbital: periorbital findings normal Eyelids: Yes eyelids normal Conjunctivae: conjunctivae normal Pupils: Equal, round and reactive pupils present EOM: EOMs intact bilaterally Neck Neck: Yes normal visual inspection, Yes full ROM and Yes no lymphadenopathy Chest Chest palpation & inspection: normal inspection of the chest Resp Effort & Inspection: normal respiratory effort and able to speak in complete sentences GI Inspection: Yes normal to inspection General: Yes no CVA tenderness Back/Spine/Pelvis Back: no CVA tenderness Cervical Spine: normal cervical lordosis and cervical ROM normal Thoracic/Lumbar Spine: thoracic and lumbar spine normal to inspection and thoraco-lumbar ROM normal Pelvis: no pain with anterior-posterior compression Neuro General: patient oriented x3 and moves all extremities Cranial nerves: Yes Equal, round and reactive pupils present Cognition (Neuro): normal cognition Motor exam (neuro): 5/5 motor strength present throughout Sensory Exam: Normal double simultaneous stimulation for sensation Coordination: [id number] test normal Extrem General: Yes normal to inspection, Yes full ROM and Yes capillary refill normal Psych Appearance: grossly normal Mental Status: mental status grossly normal Affect: normal affect Attitude: cooperative Thought process: Normal thought process present Thought content: Normal thought content present Insight: Good insight present (Psych) Medications Administered Discontinued Medications Generic Name Dose Route Start Last Admin Trade Name Rosie PRN Reason Stop Dose Admin Cyclobenzaprine HCl 5 mg 05/09/23 11:08 05/09/23 11:21 Cyclobenzaprine Hcl 5 Mg Tablet PO 05/09/23 11:09 5 mg ONCE ONE Administration Ketorolac Tromethamine 15 mg 05/09/23 11:08 05/09/23 11:21 Ketorolac Tromethamine 15 Mg/Ml Vial IM 05/09/23 11:09 15 mg ONCE ONE Administration Prednisone 20 mg 05/09/23 11:08 05/09/23 11:21 Prednisone 20 Mg Tablet PO 05/09/23 11:09 20 mg ONCE ONE Administration Medical Decision Making Medical Decision Making MDM Narrative: Patient is a 47 year old assigned male at with no reported medical history presenting to the emergency department today with right sided back pain after lifting a 5 gallon paint bucket. Patient's physical exam was unremarkable. I explained my physical exam findings to the patient. I answered all questions asked by the patient. Patient received Toradol, Prednisone, and Flexeirl which he stated helped his symptoms significantly. I stressed the importance of the patient taking his medication as prescribed. I stressed the importance of the patient following up with his primary care provider. I stressed the importance of the patient returning to the emergency department immediately if his symptoms were to worsen or if he were to develop any dizziness, shortness of breath, difficulty breathing, chest pain, blurry vision, loss of vision, nausea, vomiting, abdominal pain, fever, chills, back pain, or any other complaints. Patient verbalized agreement and understanding with this treatment plan and discharge. Differential Diagnosis Differential Diagnoses: The differential diagnosis associated with the presentation includes Muscle spasm Mechanical back pain Back pain Prescription Management I considered prescription management with: Pain Medication (patient prescribed pain medication) Discharge Plan Discharge Clinical Impression: Mechanical back pain Patient Disposition: Home, Self-Care Instructions: Back Pain (ED) Additional Instructions: If pain persists >2 weeks, call to establish and follow up with a content production specialist. Follow up with your primary care provider. Return to the emergency department immediately if your symptoms worsen or if you develop any dizziness, shortness of breath, difficulty breathing, chest pain, blurry vision, loss of vision, nausea, vomiting, abdominal pain, fever, chills, back pain, or any other complaints. Prescriptions: New cyclobenzaprine 5 mg tablet 5 mg PO TID PRN (Reason: muscle spasm) 7 Days Qty: 21 0RF prednisone 20 mg tablet 20 mg PO DAILY 7 Days Qty: 7 0RF naproxen 500 mg tablet 500 mg PO BID 7 Days Qty: 14 0RF No Action naproxen 500 mg tablet 500 mg PO BID PRN (Reason: pain) Qty: 20 0RF cyclobenzaprine 10 mg tablet 10 mg PO TID PRN (Reason: muscle spasm) Qty: 8 0RF ibuprofen 600 mg tablet 600 mg PO Q8H PRN (Reason: pain) Qty: 20 0RF lidocaine 5 % adhesive patch,medicated 1 patch topical DAILY Qty: 15 0RF Rx Instructions: leave on most painful area for up to 12 hrs Referrals: [facility] Family Medicine [Provider Group] (Call to establish and follow up with a primary care provider. If you already have a primary care provider, please follow up with them.) [facility] [Provider Group] (Call to establish and follow up with a primary care provider. If you already have a primary care provider, please follow up with them.) [facility] [Provider Group] (Call to establish and follow up with a primary care provider. If you already have a primary care provider, please follow up with them.) [facility] [Provider Group] (Call to establish and follow up with a content production specialist if your pain persists >2 weeks.) Stand Alone Forms: Work/School Release Interventions: ED Discharge Assessment Last Done: 05/09/23 11:26 Discharge Date/Time: 05/09/23 11:27 Print Language: Czech
[2023-05-09] MEDS: Ketorolac Tromethamine 15 MG/ML VIAL IM (11:21)
[2023-05-09] MEDS: predniSONE 20 MG TABLET PO (11:21)
[2023-05-09] MEDS: Cyclobenzaprine HCl 5 MG TABLET PO (11:21)
== END 2023-05-09 11:27 | disposition home or self-care (01) ==
PROVIDERS: Emergency Provider Emergency Medicine
DX: M54.50 Low back pain, unspecified (principal); Z79.899 Other long term (current) drug therapy
CPT/HCPCS: 96372; 99283; 99284; J1885

== ENCOUNTER 2025-03-23 07:25 | Outpatient (REF) | payer BC, SELFPAY ==
--- OUTSIDE RECORDS SUMMARY | 2025-03-23 07:29 | XMS_ITS | Clinical Summary ---
Author Organization [employer] [facility] Address [address] [place] [address] Care Team Providers Care Plush Cutter Name Role Phone Unavailable Primary Care Provider Unavailabl e Social History Tobacco Use Types Packs/Day Years Used Date Smoking Tobacco: Never Assessed Sex and Gender Information Value Date Recorded Sex Assigned at Not on file Legal Sex Male 4:56 AM EST Gender Identity Not on file Sexual Orientation Not on file Plan of Treatment Health Maintenance Due Date Last Done Comments DTaP,Tdap,and Td Vaccines (1 - Tdap) 1992 Hepatitis B Vaccines (1 of 3 - 19+ 3-dose series) 1992 Pneumococcal Vaccine: 50+ Ye ars (1 of 1 - PCV) 2023 Zoster Vaccines (1 of 2) 2023 COVID-19 Vaccine (1 - 2023-2 5 season) 2024 Depression Screening 08/13/2024 Influenza Vaccine (#1) 2025 HIB Vaccines Aged Out No longer eligi ble based on patient's age to complete this topic HPV Vaccines Aged Out No longer eligi ble based on patient's age to complete this topic Hepatitis A Vaccines Aged Out No long er eligible based on patient's age to complete this topic IPV Vaccines Aged Out No longer eligi ble based on patient's age to complete this topic MMR Vaccines Aged Out No longer eligi ble based on patient's age to complete this topic Meningococcal ACWY Vaccine Aged Out N o longer eligible based on patient's age to complete this topic Meningococcal B Vaccine Aged Out No l onger eligible based on patient's age to complete this topic RSV Immunization Patients Un fatimah 20 months Aged Out No longer eligible b ased on patient's age to complete this topic Varicella Vaccines Aged Out No longer eligible based on patient's age to complete this topic
--- OUTSIDE RECORDS SUMMARY | 2025-03-23 07:29 | XMS_ITS | Encounter Summary ---
Author Organization [employer] Address [address] [place] [address] Care Team Providers Care Web Application Dev Specialist Name Role Phone Aleida Lane ORTHOPEDIC NURSE PRACTITIONER Primary Care Provider [phone] Reason for Visit * Reason Comments Med Refill Encounter Details Date Type Department Care Team ([facility] st Contact Info) Description 02/14/2025 Refill [facility] [address] [place], [place] [id number]ida [address] FNP [address] [place], [place] [id number] Tobacco use Social History Tobacco Use Types Packs/Day Years Used Date Smoking Tobacco: Every Day Cigarettes Smokeless Tobacco: Former Depression Answer Date Recorded Patient Health Questionnaire-9 Score 2 01/02/2025 Patient Health Questionnaire-9 Score 2 01/02/2025 Last PHQ-9: Questionnaire Data Not on file 0 01/02/2025 Housing Stability Answer Date Recorded What is your housing situation today? I have myla mar 12/24/[address] you li ve. Do you have problems with any of the following? None of the above 12/24/2024 Food Insecurity Answer Date Recorded Within the past 12 months, y ou worried that your food would run out before you got money to buy more: Never True 12/24/2024 Within the past 12 months,th e food you bought just didn't last and you didn't have enough money to get more: Never True Transportation Answer Date Recorded In the past 12 months, has l ack of transportation kept you from medical appts, meetings, work or from getting things needed for daily living? No 12/24/2024 Utilities Answer Date Recorded In the past 12 months, has t he electric, gas, oil or water company threatened to shut off services in your home? No 12/24/2024 Depression Answer Date Recorded Patient Health Questionnaire-2 Score 0 01/02/2025 Internet Access Answer Date Recorded Internet Access Q1 Yes 12/24/2024 Internet Access Q2 Not on file 12/24/2024 Sex and Gender Information Value Date Recorded Sex Assigned at Male 01/01/2025 10:35 AM EDT Legal Sex Male 4:21 PM EST Gender Identity Male 01/01/2025 10:35 AM EDT Sexual Orientation Don't know 01/01/2025 10 :35 AM EDT documented as of this encounter Plan of Treatment Not on file documented as of this encounter Visit Diagnoses Diagnosis Tobacco use documented in this encounter Additional Health Concerns Assessment Noted Time PHQ-9 Depression Total Score: 2 01/03/20 2:32 PM EDT documented as of this encounter Care Teams Web Application Dev Specialist Relationship Specialty Start Date End Date Aleida Lane FNP [address] [place] [id number] PCP - General Family Medicine 01/02/25 documented as of this encounter
[2025-03-23 07:43] LABS: MANUAL DIFF FLAG NO
[2025-03-23 08:11] LABS: Hematocrit 40.6 % (42.0-52.0); Hemoglobin 12.8 g/dl (14.0-18.0); Imm Gran Abs Auto 0.03 X10*3/uL (0.00-0.03); Imm Gran Pct Auto 0.6 % (0.0-0.4); Lymphocytes Absolute Auto 1.2 X10*3/uL (1.2-4.9); Mean Corpuscular HGB Conc 31.5 g/dl (31.0-36.0); Mean Corpuscular Hemoglobin 27.1 pg (27.0-33.0); Mean Corpuscular Volume 85.8 fL (80.0-98.0); NRBC Abs Auto 0.000 X10*3/uL (0.0-0.012); NRBC Pct Auto 0.0 /100WBC (0.0-0.2); Platelet Count 207 X10*3/uL (160-400); Red Blood Count 4.73 X10*6/uL (4.60-5.80); White Blood Count 5.2 X10*3/uL (4.8-10.8)
[2025-03-23 08:24] LABS: Hemoglobin A1C 123.1510 umol/L; Total Hemoglobin (HGBA1C) 3372.5581 umol/L
[2025-03-23 09:03] LABS: Alanine Aminotransferase 20 U/L (0-40); Albumin Level 4.2 g/dL (3.5-5.0); Alkaline Phosphatase 59 U/L (39-117); Anion Gap 8 (12-20); Aspartate Amino Transferase 32 U/L (5-37); Blood Urea Nitrogen 20 mg/dL (9-16); Calcium 9.1 mg/dL (8.4-10.2); Carbon Dioxide 29 mmol/L (22-29); Chloride 110 mmol/L (96-108); Cholesterol 152 mg/dL (<200); Estimated Glomerular Filt Rate > 60; HDL Cholesterol 46 mg/dL (>40); Potassium 5.1 mmol/L (3.3-5.1); Sodium 142 mmol/L (135-145); Total Protein 6.7 g/dL (6.5-8.0); Triglycerides 83 mg/dL (<150)
[2025-03-23 09:11] LABS: Prostate Specific Antigen 1.65 ng/mL (<0.05-4.0)
[2025-03-23 09:27] LABS: HBS Num1 0.15 mIU/mL (0-7.99); HBc Num1 0.03 S/CO (0.00-0.79); HBsAGNum1 0.42 S/CO (0.00-0.99); HIV Num 1 0.11 S/CO (0.00-0.99); Hepatitis B Surface Antigen Negative (Negative); ~Hepatitis B Surface Antibody NONREACTIVE (Nonreactive)
[2025-03-24 16:18] LABS: HCV Log PCR <1.18 NOT DETECTED Log IU/mL (NOT DETECTED); HepC Viral Load <15 NOT DETECTED IU/mL (NOT DETECTED)
== END 2025-03-23 07:26 | disposition home or self-care (01) ==
LOC: HO.LAB 07:25
PROVIDERS: PCP Registered Nurse; Visit Provider Registered Nurse
DX: Z00.00 Encounter for general adult medical examination without abnormal findings (principal); Z12.5 Encounter for screening for malignant neoplasm of prostate; Z13.6 Encounter for screening for cardiovascular disorders; Z11.3 Encounter for screening for infections with a predominantly sexual mode of transmission; Z11.4 Encounter for screening for human immunodeficiency virus [HIV]; Z11.59 Encounter for screening for other viral diseases
CPT/HCPCS: 36415; 80053; 80061; 82043; 82570; 83036; 84153; 84443; 85025; 86592; 86704; 86706; 87340; 87389; 87522

== ENCOUNTER 2025-05-05 09:56 | Day surgery (SDC) | payer BC, SELFPAY ==
--- OUTSIDE RECORDS SUMMARY | 2025-04-23 09:35 | XMS_ITS ---
Author Organization [facility] Address [address] [place] [address] Care Team Providers Care Advertising Material Distributor Name Role Phone WESTON MUÑOZ MD Primary Care Provider Luther Oconnell Jr Unavailable Allergies No Known Allergies REASON FOR VISIT Patient presents today for a SCREENING COLON Medications Medication SIG (Take, Route, Fr equency, Duration) Notes Start Date End Date Status Nicotine 14 MG/24HR PLEASE SEE ATTACHED FOR DETAILED DIRECTIONS Transdermal for 42 Days Active Gabapentin 300 MG TAKE 1 CAPSULE BY MO ANDREA THREE TIMES A DAY FOR 14 DAYS Oral for 14 Days Active Social History Tobacco Use: Social History Observation Description Date Details (start date - stop date) Former Smoker 04/19/1989 - 02/18/2025 Tobacco Control (Standard) Question Answer Notes Tobacco use: Former smoker When did you start smoking? 04/19/1989 When did you stop smoking? 02/18/2025 How long has it been since you last smoked? 1-3 months AUDIT-C (Standard) Question Answer Notes Did you have a drink contain ing alcohol in the past year? Yes How often did you have a dri nk containing alcohol in the past year? 2 to 4 times a month (2 points) How many drinks did you have on a typical day when you were drinking in the past year? 3 or 4 drinks (1 point) How often did you have six o r more drinks on one occasion in the past year? 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 (0380488874677 03) NSAID long-term use (Z79.1) Active confirmed Problem Pre-procedure evaluation check (646997964) Encounter for other preprocedural examination (Z01.818) Active confirmed Vital Signs Temperature 96.9 degrees Fahrenheit 04/23/20 25 Blood pressure systolic 001 mm Hg 04/23/20 25 Blood pressure diastolic 01 mm Hg 025 Height 64.75 in 04/23/2025 Weight 150.4 lbs 04/23/2025 BMI 25.22 kg/m2 04/23/2025 Encounters Encounter Location Date Provider Diagnosis [facility] [address] [place] [address] 04/23/2025 Luther Duke Jr NSAID long-term use Z79.1 ; Encounter for other preprocedural examination Z01.818 and Encounter for screening for malignant neoplasm of colon Z12.11 Assessments Encounter Date Diagnosis (ICD Code) Assessment Notes Treatment Notes Treatment Clinical Notes Section Notes 04/23/2025 NSAID long-term use (ICD-10 - Z79.1) We discussed colonoscopy today. We discussed risks and benefits of the procedure today. He understands these and agrees to proceed. This will be scheduled at his convenience. He is advised to stop ibuprofen 1 week before the procedure. 04/23/2025 Encounter for other preprocedural examination (ICD-10 - Z01.818) We discussed colonoscopy today. We discussed risks and benefits of the procedure today. He understands these and agrees to proceed. This will be scheduled at his convenience. He is advised to stop ibuprofen 1 week before the procedure. 04/23/2025 Encounter for screening for malignant neoplasm of colon (ICD-10 - Z12.11) We discussed colonoscopy today. We discussed risks and benefits of the procedure today. He understands these and agrees to proceed. This will be scheduled at his convenience. He is advised to stop ibuprofen 1 week before the procedure. Plan Of Treatment Future Test Test Name Order Date COLONOSCOPY 04/23/2025 Next Appt Details Provider Name:Luther johnson Jr, 05/05/2025 11:50:00 AM, [address] [facility] , [place], [place], [phone], Progress Notes * YAHIR STEINBERGODOB:1974 (49 yo M)Acc No.[id number]:04/23/2025 Progress Notes Patient: JEISON JOYCE Provider: Opal Duke MD :1975 A ge:49 Y S ex:Male Date:04/23/2025 Address:[address] [facility] Pcp:WESTON MUÑOZ MD Subjective: * Chief Complaints: * 1 . Patient presents today for a SCREENING COLON. * Medical History: L ow heart rate. * Surgical History: l eft knee surgery , left ankle surgery , left toe surgery . * Hospitalization/Major Diagno stic Procedure: D enies Past Hospitalization. * Family History: F ather: , diagnosed with Heart disease. M other: alive. M aternal Grand Mother: , diagnosed with Heart disease. Denies family history of colon cancer, colon polyps and liver disease. * Social History: T obacco Use: T obacco Control (Standard) T obacco use: F ormer smoker, W hen did you start smoking? 0 04/19/1989, W hen did you stop smoking? 0 02/18/2025, H ow long has it been since you last smoked? 1 -3 months. M iscellaneous: M arital status: . Occupation: Works with troubled middle school students. D rug/Alcohol: A KELECHI-C (Standard) D id you have a drink containing alcohol in the past year? Y es,?How often did you have a drink containing alcohol in the past year? 2 to 4 times a month (2 points), H ow many drinks did you have on a typical day when you were drinking in the past year? 3 or 4 drinks (1 point), H ow often did you have six or more drinks on one occasion in the past year? L ess than monthly (1 point), P oints 4 , I nterpretation P ositive. * Medications: T aking Gabapentin 300 MG Capsule TAKE 1 CAPSULE BY MOUTH THREE TIMES A DAY FOR 14 DAYS Oral , Taking Nicotine 14 MG/24HR Patch 24 Hour PLEASE SEE ATTACHED FOR DETAILED DIRECTIONS Transdermal , Medication List reviewed and reconciled with the patient * Allergies: N .K.D.A. Objective: * Vitals: W t:150.4lbs, Ht:64.75in, BMI:25.22Index, BP:001/01mm Hg, Temp:96.9, Ht-cm: 164.47, Wt-k.22. Assessment: * Assessment: 1. E ncounter for other preprocedural examination - Z01.818 (Primary) 2 . N SAID long-term use - Z79.1 3 . E ncounter for screening for malignant neoplasm of colon - Z12.11 We discussed colonoscopy tod ay. We discussed risks and benefits of the procedure today. He understands these and agrees to proceed. This will be scheduled at his convenience. He is advised to stop ibuprofen 1 week before the procedure. Plan: * Treatment: 2. N SAID long-term use P rocedure: COLONOSCOPY (Ordered for 04/23/2025) 3. E ncounter for screening for malignant neoplasm of colon P rocedure: COLONOSCOPY (Ordered for 04/23/2025) * Preventive Medicine: Counseling: C are goal follow-up plan: A eamon Normal BMI Follow-up G iving encouragement to exercise. Screenings: F all Risk Screening F all Risk Assessment: N o falls in the past year, S creening: N o falls in the past year, P deborah of Care: N ot documented, no reason specified. * * The named appointment provid er may or may not be the originator of this progress note, and it is not deemed complete until electronically signed by the appointment provider. Sign off status: Pending * Provider: Opal Duke MD Date: 04/23/2025 Generated for Celi gao/Gela/Jaskaranitting on: 04/24/2025 03:45 PM EDT
--- OUTSIDE RECORDS SUMMARY | 2025-04-24 15:45 | XMS_ITS | Clinical Summary ---
Author Organization [facility] [facility] Address [address] [place] [address] Care Team Providers Care Recruiting Scheduler Name Role Phone Unavailable Primary Care Provider [...] 2023 Zoster Vaccines (1 of 2) 2023 Depression Screening 08/13/2024 COVID-19 Vaccine (1 - 2023-2 5 season) 2025 Influenza Vaccine (#1) 2025 HIB Vaccines Aged [...]
--- OUTSIDE RECORDS SUMMARY | 2025-04-24 15:45 | XMS_ITS | Patient Health Record ---
Author Organization [facility] Address [address] [place] [address] Care Team Providers Care Lead Manufacturing Engineering Tech Name Role Phone WESTON MUÑOZ MD Primary Care Provider Unavaila ble Luther Duke Jr Unavailable Allergies No Known Allergies Reason For Referral Referring Provider First Name WESTON Referring Provider Last Name WANDA Referred Organization [facility] Referred Provider Luther Duke Jr Referred Address [address],[place], [place],[address], Referred Provider Specialty Gastroentero logy Referral Priority Routine Medications Medication SIG (Take, Route, Fr equency, Duration) Notes Start Date End Date Status Nicotine 14 MG/24HR PLEASE SEE ATTACHED FOR DETAILED DIRECTIONS Transdermal for 42 Days Active Gabapentin 300 MG TAKE 1 CAPSULE BY ORESTES MENDEZ THREE TIMES A DAY FOR 14 DAYS [...] Problem Screening for malignant neoplasm of colon (996696310) Encounter for screening for malignant neoplasm of colon (Z12.11) Active confirmed Problem Pre-procedure evaluation check (078716153) Encounter for other preprocedural examination (Z01.818) Active confirmed Problem shelter current use of non-steroidal anti-inflammat ory drug (8199801299815 03) NSAID long-term use (Z79.1) Active confirmed Vital Signs Temperature 96.9 degrees Fahrenheit 04/23/2025 Blood pressure diastolic 01 mm Hg 04/23/2025 Height 64.75 in 04/23/2025 Blood pressure systolic 001 mm Hg 04/23/2025 Weight 150.4 lbs 04/23/2025 BMI 25.22 kg/m2 04/23/2025 Encounters Encounter Location Date Provider Diagnosis [facility] [address] [place] [address] 04/23/2025 Luther Duke Jr NSAID long-term use Z79.1 ; Encounter for other preprocedural examination Z01.818 and Encounter for screening for malignant neoplasm of colon Z12.11 Assessments Encounter Date Diagnosis (ICD Code) Assessment Notes Treatment Notes Treatment Clinical Notes Section Notes 04/23/2025 Encounter for other preprocedural examination (ICD-10 - Z01.818) We discussed colonoscopy today. We discussed risks and benefits of the procedure today. He understands these and agrees to proceed. This will be scheduled at his convenience. He is advised to stop ibuprofen 1 week before the procedure. 04/23/2025 NSAID long-term use (ICD-10 - Z79.1) [...] COLONOSCOPY 04/23/2025 Next Appt Details Provider Name:Luther Baird Bradley johnson Jr, 05/05/2025 11:50:00 AM, [address] [place] [address] , [place], [place], [phone], Insurance Providers Payer Name Payer Address Payer Phone Subscriber Number Group Number Insured Name Patient Relationship to Insured Coverage Start Date Coverage End Date [facility] [address] [place] [address] [phone] [id number] JEISON WELLS Self - patient is the insured Medical (General) History Medical History History ICD Code low heart rate Surgical History Surgery Date(Month/Year) left toe surgery left ankle surgery left knee surgery
--- OUTSIDE RECORDS SUMMARY | 2025-04-24 15:45 | XMS_ITS | Encounter Summary ---
Author Organization [employer] Address [address] [facility] [address] [place] [address] Care Team Providers Care Sales And Service Representative Name Role Phone Aleida Lane DESIGN/ANIMATION INSTRUCTOR Primary Care Provider [phone] Reason for Visit * Reason Comments Med Refill Encounter Details Date Type Department Care Team ([facility] st Contact Info) Description 02/14/2025 Refill [facility] [address] [place], [place] [phone] Aleida [address] FNP [address] [place], [place] [phone] Tobacco use Social History Tobacco Use Types [...] documented as of this encounter Care Teams Sales And Service Representative Relationship Specialty Start Date End Date Aleida Lane FNP [address] [place] [id number] PCP - General Family Medicine 01/02/25 documented as of this encounter
--- OUTSIDE RECORDS SUMMARY | 2025-04-24 15:45 | XMS_ITS | Clinical Summary ---
Author Organization [employer] Address [address] [facility] [address] [place] [address] Care Team Providers Care Pigs Feet Finisher Name Role Phone Aleida Lane ENGINE COWLING INSTALLER Primary Care Provider Allergies No known active allergies Medications nicotine (Nicoderm CQ) 14 MG/24HR patchIndicatio ns:Tobacco use After completion of 21mg/day patch: Apply 1 patch on the skin (one) time each day at the same time x 6 weeks. Apply in the morning, remove at night. 42 patch 01/03/20 25 Active nicotine polacrilex (Nicotine Mini) 4 MG lozengeIndicat ions:Tobacco use Dissolve 1 lozenge (4 mg) in the mouth every 2 (two) hours if needed for smoking cessation. Weeks 1-6: 1 lozenge every 1-2 hrs (max 5 lozenges every 6 hrs; 20 lozenges/day); Weeks 7-9: 1 lozenge every 2-4 hrs Weeks 10-12: 1 lozenge every 4-8 hrs 2 lozenge 2 01/03/20 25 Active nicotine (Nicoderm CQ) 7 MG/24HR patchIndicatio ns:Tobacco use After completion of 14mg/day patch: Apply 1 patch on the skin (one) time each day at the same time x 2 weeks. 14 patch 01/03/20 25 Active gabapentin (Neurontin) 300 MG capsule TAKE 1 CAPSULE BY MOUTH THREE TIMES A DAY FOR 14 DAYS 42 capsule 04/17/20 25 Active ibuprofen 800 MG tablet Take 1 tablet (800 mg) by mouth if needed in the morning, at noon, and at bedtime (pain or fever). 90 tablet 1 04/16/20 25 Active ibuprofen 800 MG tablet Take 1 tablet (800 mg) by mouth 3 times daily. 90 tablet 03/20/20 25 025 Discontinued gabapentin (Neurontin) 300 MG capsule Take 1 capsule (300 mg) by mouth 3 times daily for 14 days. 42 capsule 03/20/20 025 Discontinued Active Problems Problem Noted Date Diagnosed Date Sciatica without back pain, right 03/20/2025 Tobacco use 01/02/2025 Assessment & Plan (01/02/2025 8:16 PM EDT): -Cigg/day: 4 -Age started: 15 years old -Total years smokin -Pack year history: 6.8 Encouraged smoking cessation resources such as pharmacomtherapy, [facility] smoking cessation group, and [facility] pharmacy smoking cessation clinic -START NRT patches and lozenges -LDCT: not eligible Right hip pain 01/02/2025 Assessment & Plan (01/02/2025 8:17 PM EDT): - Chronic atraumatic right hip pain. Reports hx of repetitive movement/activity with martial arts - Referral to [facility] for further eval Healthcare maintenance 01/02/2025 Overview (01/02/2025): Colonoscopy: referral placed 01/02/25 PSA: ordered 01/02/25 Repeated concussion of brain 01/02/2025 Assessment & Plan (01/02/2025 8:18 PM EDT): - Hx of multiple concussions (primarily d/t martial arts/sport) - 1 included LOC Mood disorder 01/02/2025 Assessment & Plan (01/02/2025 8:20 PM EDT): - Reported hx of mood disorder, no documentation available at this time - Previous med trials include depakote, remeron - Declines referral for therapy or med management, feels currently well controlled with marijuana, exercise, and grounding exercises. Functioning well. - Safety planning & follow up precautions reviewed Encounters Date Type Department Care Team Description 04/16/2025 Refill [facility] [address] [place] [address] Hoda Walter MD 04/14/2025 Refill [facility] [address] [place] [address] Hoda Walter MD 04/01/2025 Results Follow-Up [facility] [address] [place] [address] FNP Albumin, Random Urine W/Creatinine, Lipid Panel, Standard, Hemoglobin A1c, Additional followed-up results: 10 03/20/2025 10:30 AM EDT Office Visit [facility] [address] [place] [address] Hoda Walter MD Tobacco use (Primary Dx); Sciatica without back pain, right 03/20/2025 Travel 03/20/2025 Telephone [facility] [address] [place] [address] FNP Nurse Triage 02/14/2025 Refill [facility] [address] [place] [address] FNP Tobacco use from Last 3 Months Social History Tobacco Use Types Packs/Day Years Used Date Smoking Tobacco: Every Day Cigarettes Smokeless Tobacco: Former Tobacco Cessation:Ready to Q uit: Not Asked; Counseling Given: Not Answered Depression Answer Date Recorded Patient Health Questionnaire-9 [...] Don't know 01/01/2025 10 :35 AM EDT Last Filed Vital Signs Vital Sign Reading Time Taken Comments Blood Pressure 116/70 03/20/2025 10:30 AM EDT Pulse 72 03/20/2025 10:30 AM EDT Temperature 36.7 C (98 F) 03/20/2025 10:30 AM EDT Respiratory Rate 16 03/20/2025 10:30 AM EDT Oxygen Saturation 97% 01/02/2025 1:19 PM EDT Inhaled Oxygen Concentration - - Weight 68 kg (150 lb) 03/20/2025 10:30 AM EDT Height 161.6 cm (5' 3.63 ) 01/02/2025 1:19 PM ED T Body Mass Index 26.05 01/02/2025 1:19 PM EDT Plan of Treatment Health Maintenance Due Date Last Done Comments CT Colonography 1973 Colonoscopy 1973 Colorectal Cancer Screening 1973 FIT DNA/Cologuard 1973 FIT 1973 FOBT 1973 Sigmoidoscopy 1973 Family Planning (PISQ) 1988 DTaP/Tdap/Td Vaccines (1 - Tdap) 1992 Hepatitis B Vaccines (1 of 3 - 19+ 3-dose series) 1992 Pneumococcal Vaccine: 50+ Years (1 of 2 - PCV) 1992 Zoster Vaccines (1 of 2) 2023 COVID-19 Vaccine (1 - 2023-2 5 season) 2025 Influenza Vaccine (#1) 2025 Alcohol/Substance Use Screening 01/02/2026 01/02/2025 Depression Screening 01/02/2026 01/02/2025, 01/02/2025 Disability Screening 01/02/2026 01/02/2025 SDOH Screening 01/02/2026 01/02/2025 Tobacco Screening 03/20/2026 03/20/2025 Lipid Panel 03/23/2030 03/23/2025 RSV Patients and Patients Aged 60 years or older (1 - 1-dose 75+ series) 2048 HIV Screening Completed 03/23/2025 Hepatitis C Screening Completed 03/23/2025 HIB Vaccines Aged Out No longer eligi [...] patient's age to complete this topic Meningococcal Vaccine Aged Out No brigido missy eligible based on patient's age to complete this topic RSV under 20 months Aged Out No longe r eligible based on patient's age to complete this topic Rotavirus Vaccines Aged Out No longer eligible based on patient's age to complete this topic Procedures Procedure Name Priority Date/Time Associated Diagnosis Comments PSA, TOTAL Routine 03/23/2025 7:41 AM EDT Healthcare maintenance HEPATITIS B SURFACE ANTIGEN, EIA Routine 03/23/2025 7:41 AM EDT Healthcare maintenance HEPATITIS B SURFACE ANTIBODY, QUALITATIVE Routine 03/23/2025 7:41 AM EDT Healthcare maintenance HEPATITIS B CORE AB TOTAL Routine 03/23/2025 7:41 AM EDT Healthcare maintenance HIV 1/2 ANTIGEN/ANTIBODY, FOURTH GENERATION W/RFL Routine 03/23/2025 7:41 AM EDT Healthcare maintenance RPR (MONITOR) W/REFL TITER Routine 03/23/2025 7:41 AM EDT Healthcare maintenance HEPATITIS C VIRAL RNA, QUANTITATIVE, REAL-TIME PCR Routine 03/23/2025 7:41 AM EDT Healthcare maintenance CBC WITH AUTO DIFFERENTIAL Routine 03/23/2025 7:41 AM EDT Healthcare maintenance COMPREHENSIVE METABOLIC PANEL Routine 03/23/2025 7:41 AM EDT Healthcare maintenance TSH W/REFLEX TO FT4 Routine 03/23/2025 7 :41 AM EDT Healthcare maintenance HEMOGLOBIN A1C Routine 03/23/2025 7:41 AM EDT Healthcare maintenance LIPID PANEL, STANDARD Routine 03/23/2025 7:41 AM EDT Healthcare maintenance ALBUMIN, RANDOM URINE W/CREATININE Routine 03/23/2025 7:37 AM EDT Healthcare maintenance AMB REFERRAL TO ORTHOPAEDIC SURGERY Routine 03/05/2025 Right hip pain from Last 3 Months Results * TSH with Reflex to Free T4 (03/23/2025 7:41 AM EDT) TSH reflex Free T4 0.84 0.32 - 4.0 uIU/mL [facility] Blood 03/23/2025 7:41 AM EDT 03/23/2025 7:[address] ENGINE COWLING INSTALLER LAB BLOOD ORDERABLES Final Res ult [facility] [address] [place] [phone] * Hepatitis C Viral RNA, Quantitative, Real-Time PCR (03/23/2025 7:41 AM EDT) Hepatitis C Viral Load <15 NOT DETECTED NOT DETECTED IU/mL [facility] HCV Log PCR <1.18 NOT DETECTED NOT DETECTED Log IU/mL [facility] Comment:For additional infor matdouglas, please refer [email or web address].Ondax/faq/[email or web address](This link is being provided for informational/educational purposes only.)THIS TEST WAS PERFORMED AT:[facility] [employer] [place] [id number] DONG MD Blood 03/23/2025 7:41 AM EDT 03/23/2025 7:[address] ENGINE COWLING INSTALLER LAB BLOOD ORDERABLES Final Res ult [facility] [address] [place] [phone] * (ABNORMAL) CBC auto differential (03/23/2025 7:41 AM EDT) White Blood Count 5.2 4.8 - 10.8 X10*3/uL [facility] Red Blood Count 4.73 4.60 - 5.80 X10*6/uL [facility] Hemoglobin 12.8(L) 14.0 - 18.0 g/dl [facility] Hematocrit 40.6(L) 42.0 - 52.0 % [facility] Mean Corpuscular Volume 85.8 80.0 - 98.0 fL [facility] Mean Corpuscular Hemoglobin 27.1 27.0 - 33.0 pg [facility] Mean Corpuscular HGB Conc 31.5 31.0 - 36.0 g/dl [facility] Red Cell Distribution Width 14.0 11.0 - 16.0 % [facility] Platelet Count 207 160 - 400 X10*3/uL [facility] Mean Platelet Volume 10.5 9.4 - 12.4 fL [facility] Neutrophils Percent Auto 63.1 45 - 73 % [facility] Imm Gran Pct Auto 0.6(H) 0.0 - 0.4 % [facility] Lymphocytes Percent Auto 22.4 20 - 40 % [facility] Monocytes Percent Auto 10.6 2 - 11 % [facility] Eosinophils Percent Auto 2.7 0 - 4 % [facility] Basophils Percent Auto 0.6 0 - 2 % [facility] NRBC Pct Auto 0.0 0.0 - 0.2 /100WBC [facility] Neutrophils Absolute Auto 3.3 2.0 - 8.3 x10*3/uL [facility] Imm Gran Abs Auto 0.03 0.00 - 0.03 X10*3/uL [facility] Lymphocytes Absolute Auto 1.2 1.2 - 4.9 X10*3/uL [facility] Monocytes Absolute Auto 0.6 0.1 - 1.2 X10*3/uL [facility] Eosinophils Absolute Auto 0.1 0.0 - 0.4 X10*3/uL [facility] Basophils Absolute Auto 0.0 0.0 - 0.2 X10*3/uL [facility] NRBC Abs Auto 0.000 0.0 - 0.012 X10*3/uL [facility] Blood Venous blood specimen / Unknown 03/23/2025 7:41 AM EDT 03/23/2025 7:[address] ENGINE COWLING INSTALLER LAB BLOOD ORDERABLES Final Res ult Performing Organization Address [facility]/ZIP Co de Phone Number [facility] [address] [place] [phone] * Hepatitis B surface antigen, EIA (03/23/2025 7:41 AM EDT) Hepatitis B Surface Ag Negative Negative [facility] Blood Venous blood specimen / Unknown 03/23/2025 7:41 AM EDT 03/23/2025 7:41 AM EDT Aleida Ariana ENGINE COWLING INSTALLER LAB BLOOD ORDERABLES Final Res ult Performing Organization Address City/[facility]/ZIP Co de Phone Number [facility] [address] [place] [phone] * Hepatitis B Core Antibody, Total (03/23/2025 7:41 AM EDT) Hepatitis B Core Antibody Nonreactive Nonreactive [facility] Blood Venous blood specimen / Unknown 03/23/2025 7:41 AM EDT 03/23/2025 7:[address] [facility] BLOOD ORDERABLES Final Res ult Performing Organization Address [facility] Co de Phone Number [facility] [address] [place] [phone] * RPR (Monitor) with Reflex to??Titer (03/23/2025 7:41 AM EDT) RPR (Monitor) w/Refl Titer NON-REACTI VE NON-REACT NIA [facility] Comment:THIS TEST WAS PERFOR MED AT:[facility] [employer] [place] [phone] DONG MD Rapid Plasma Reagin Ab Titer TNP [facility] Blood Venous blood specimen / Unknown 03/23/2025 7:41 AM EDT 03/23/2025 7:[address] [facility] LAB BLOOD ORDERABLES Final Res ult Performing Organization Address [facility] de Phone Number [facility] [address] [place] [phone] * HIV-1/2 Antigen and Antibodies, Fourth Generation, with Reflexes (03/23/2025 7:41 AM EDT) HIV AB/AG Nonreactive Nonreactive [facility] Comment:HIV-1 p24 Ag and/or HIV-1/HIV-2 Ab not detected.A test result that is nonreactive does not exclude thepossibility of exposure to or infection with HIV-1 and/orHIV-2. Nonreactive results in this assay for individualswith prior exposure to HIV-1 and/or HIV-2 may be due toantigen and antibody levels that are below the limit ofdetection of this assay.The Downing Alinity HIV Ag/Ab Combo assay result andsupplemental assay results should be interpreted inconjunction with the patient's clinical presentation,history and other laboratory results. If the results areinconsistent with clinical evidence, additional testing issuggested to confirm the result. Blood Venous blood specimen / Unknown 03/23/2025 7:41 AM EDT 03/23/2025 7:[address] ENGINE COWLING INSTALLER LAB BLOOD ORDERABLES Final Res ult Performing Organization Address [facility]/ZIP Co de Phone Number [facility] [address] [place] [phone] * Hepatitis B Surface Antibody, Qualitative (03/23/2025 7:41 AM EDT) ~Hepatitis B Surface Antibody NONREACTIVE Nonreactive [facility] Comment:Nonreactive: < 8.00 mIU/mL Blood Venous blood specimen / Unknown 03/23/2025 7:41 AM EDT 03/23/2025 7:[address] [facility] BLOOD ORDERABLES Final Res ult Performing Organization Address [facility] Co de Phone Number [facility] [address] [place] [phone] * PSA,Total (03/23/2025 7:41 AM EDT) Prostate Specific Antigen 1.65 <0.05 - 4.0 ng/mL [facility] Comment:PSA methodology: Abb sharmaine Alinity i ChemiluminescentMicroparticle Immunoassay (CMIA) Blood Venous blood specimen / Unknown 03/23/2025 7:41 AM EDT 03/23/2025 7:41 AM EDT us Aleida Lane [facility] BLOOD ORDERABLES Final Res ult Performing Organization Address [facility]/ZIP Co de Phone Number [facility] [address] [place] [phone] * Hemoglobin A1c (03/23/2025 7:41 AM EDT) Hemoglobin A1c 5.5 <6.0 % [facility] Comment:Hemoglobin A1C Refer ence Range Adults: 4.8 - 6.0 % Non diabetic: < 6.0 % Goal: < 7.0 %Additional Action Suggested: > 8.0 %Note: Hemoglobin A1c results are invalid for patients with abnormal amounts of HbF. Blood transfusions may impact the HbA1c concentration in the patient sample. Estimated Average Glucose 111 mg/dL [facility] Comment:eAG = Estimated ave rage glucose which is %A1C expressed asaverage glucose, using the formula of the [id number] Glucose study (ADAG), Diabetes Care, Vol.31,#8,Mar. 2007 Blood Venous blood specimen / Unknown 03/23/2025 7:41 AM EDT 03/23/2025 7:[address] [facility] BLOOD ORDERABLES Final Res ult Performing Organization Address [facility] Co de Phone Number [facility] [address] [place] [phone] * Lipid Panel, Standard (03/23/2025 7:41 AM EDT) Triglycerides 83 <150 mg/dL [facility] Comment:Desirable Triglyceri de: less than 150 mg/dLBorderline High Triglyceride 150-199 mg/dLHigh Triglyceride: 200-499 mg/dLVery High Triglyceride: greater than or equal to 5OO mg/dL Cholesterol 152 <200 mg/dL [facility] Comment:Desirable Cholestero l: less than 200 mg/dLBorderline High Cholesterol: 200-239 mg/dLHigh Cholesterol: greater than 239 mg/dL LDL Cholesterol Calculated 90 <100 mg/dL [facility] Comment:Desirable LDL: less than 100 mg/dLNear Optimal/Above Optimal LDL: 110- 129 mg/dLBorderline High LDL: 130-159 mg/dLHigh LDL: 160-189 mg/dLVery High LDL: greater than or equal to 190 mg/dL HDL Cholesterol 46 >40 mg/dL [facility] Comment:Desirable HDL: great er than 40 mg/dL Note: This HDL assay may give artificially low results in patients with liver disease. Blood Venous blood specimen / Unknown 03/23/2025 7:41 AM EDT 03/23/2025 7:41 AM EDT us Aleida Nicolesteph ENGINE COWLING INSTALLER LAB BLOOD ORDERABLES Final Res ult [facility] [address] [place] [phone] * (ABNORMAL) Comprehensive Metabolic Panel (03/23/2025 7:41 AM EDT) Sodium 142 135 - 145 mmol/L [facility] Potassium 5.1 3.3 - 5.1 mmol/L [facility] Chloride 110(H) 96 - 108 mmol/L [facility] Carbon Dioxide 29 22 - 29 mmol/L [facility] Anion Gap 8(L) 12 - 20 [facility] Urea Nitrogen (BUN) 20(H) 9 - 16 mg/dL [facility] Creatinine, Serum 0.82 0.5 - 1.4 mg/dL [facility] Estimated Glomerular Filt Rate >60 [facility] Comment:Chronic Kidney Disea se: Estimated GFR < 60 mL/min/[id number] Kidney Disease: Estimated GFR < 15 mL/min/1.73m2 Glucose 103 60 - 115 mg/dL [facility] Calcium 9.1 8.4 - 10.2 mg/dL [facility] Bilirubin, Total 0.2 0.0 - 1.0 mg/dL [facility] Aspartate Amino Transferase 32 5 - 37 U/L [facility] Alanine Aminotransferase 20 0 - 40 U/L [facility] Total Protein 6.7 6.5 - 8.0 g/dL [facility] Albumin Level 4.2 3.5 - 5.0 g/dL [facility] Alkaline Phosphatase 59 39 - 117 U/L [facility] Blood Venous blood specimen / Unknown 03/23/2025 7:41 AM EDT 03/23/2025 7:[address] ENGINE COWLING INSTALLER LAB BLOOD ORDERABLES Final Res ult Performing Organization Address [facility] Co de Phone Number [facility] [address] [place] [phone] * Albumin, Random Urine W/Creatinine (03/23/2025 7:37 AM EDT) Creatinine, Urine 141.48 mg/dL [facility] Microalbumin Urine <5.0 mg/L [facility] Microalbum Creatinine Ratio Ur TNP <30 ug/mg cr [facility] Comment:Unable to calculate albumin/creatinine ratio due to lowmicroalbumin or creatinine result. Urine 03/23/2025 7:37 AM EDT 03/23/2025 8:[address] ENGINE COWLING INSTALLER LAB URINE ORDERABLES Final Res ult Performing Organization Address [facility] Co de Phone Number [facility] [address] [place] [address] [phone] * Referral to Orthopaedic Surgery (03/05/2025) Aleida Lane ENGINE COWLING INSTALLER OUTPATIENT REFERRAL ORDERABLES Final Result from Last 3 Months Insurance [facility] H[facility] Care Teams Pigs Feet Finisher Relationship Specialty Start Date End Date Aleida Lane FNP [address] [place] [address] PCP - General Family Medicine 01/02/25
--- NOTE | 2025-05-04 08:46 | HO.ANESPROP2 ---
Documented by User: Esther Estrella NP 05/04/25 08:46 HPI - Anesthesia Eval Consult details Narrative: 49yo M for Colonoscopy [facility] Past Medical History Medical History No known health problems Surgical History Surgical History Surgical history unknown Social History Social History Alcohol intake: current Alcohol intake frequency: holidays/special occasions only Patient Tobacco Use Status: Current someday Tobacco user Tobacco use type: Cigarette Use of substances other than those prescribed or required for medical reasons: Yes Substance Use Type: Marijuana Substance Use Frequency: Daily Advance Directives: No Advance Directives Information Provided: Yes Meds Allergies Allergy/AdvReac Type Severity Reaction Status Date / Time No Known Allergies (No Known Allergy Verified 06/23/21 19:09 Allergies*) Home Medications ?Medication ?Instructions ?Recorded ?Confirmed ?Last Taken ?Type gabapentin 300 mg capsule 300 mg PO TID 05/01/25 05/01/25 Unknown History ibuprofen 800 mg tablet 800 mg PO QID PRN fever 05/01/25 05/01/25 Unknown History Assessment and Plan Assessment Anesthesia Assessment: Chart Reviewed Documented by User: Jeancarlos Cheney MD 05/05/25 12:30 [facility] Past Medical History Medical History No known health problems Functional capacity: independent ambulation Family History Family history of problems with anesthesia: No Surgical History Surgical History Surgical history unknown History of Problems with Anesthesia: No Social History Social History Alcohol intake: current Alcohol intake frequency: holidays/special occasions only Patient Tobacco Use Status: Current someday Tobacco user Tobacco use type: Cigarette Use of substances other than those prescribed or required for medical reasons: Yes Substance Use Type: Marijuana Substance Use Frequency: Daily Advance Directives: No Advance Directives Information Provided: Yes Meds Allergies Allergy/AdvReac Type Severity Reaction Status Date / Time No Known Allergies (No Known Allergy Verified 06/23/21 19:09 Allergies*) Home Medications ?Medication ?Instructions ?Recorded ?Confirmed ?Last Taken ?Type gabapentin 300 mg capsule 300 mg PO TID 05/01/25 05/01/25 Unknown History ibuprofen 800 mg tablet 800 mg PO QID PRN fever 05/01/25 05/01/25 Unknown History Exam Exam Date and Time: 05/05/2025 Airway Mallampati Class: II TM Dist: >3cm Neck ROM: Full Denture: Upper Loose/Missing/Broken Teeth: No Heart: normal Lungs: normal Other: normal Assessment and Plan Assessment Anesthesia Assessment: Anesthesia Plan Discussed Final Anesthetic Review Family History of Problems with Anesthesia: No History of Problems with Anesthesia: No NPO: Yes ASA Class: II Final Preanesthetic Review: No Changes in Pt Med Stat, Meds/Allgs Chart Reviewed, Consent Obtained/Reviewed and Anes Risks/Benef Reviewed Patient Risk: Low Procedure Risk: Low Anesthetic Plan Anesthetic Plan: MAC: Disposition: Standard PACU
--- NOTE | 2025-05-05 10:02 | MHC.SHP ---
Pre-Procedural Eval Section A - 24 Hr Update-Section A only Date of Service: 05/05/25 The patient is an INPATIENT: No Changes since office visit: No Cold of Flu in the past 2 weeks, No New Medical Problems, No Changes in Medication and No Patient answered all questions The patient has been examined within 24 hours of the surgical procedure. The History & Physical has been completed within 30 days and I have reviewed it.: Yes Section B - Complete if H&P > 30 days Chief Complaint: screening Allergies: Allergies Allergy/AdvReac Type Severity Reaction Status Date / Time No Known Allergies (No Known Allergy Verified 06/23/21 19:09 Allergies*) Plan I have reviewed the history and physical and performed a pertinent physical examination on my patient. No changes have occurred unless specified. Time Spent With Patient Time: Total time managing care of this patient today ____ minutes.
[2025-05-05 10:27] VITALS: BMI 25.3
[2025-05-05 10:40] VITALS: BP 117/70; PULSE 45; RESP 16; TEMP 36.1; O2SAT 100
[2025-05-05] MEDS: Lactated Ringers 1,000 ML 100 ML IVCONT (10:41)
[2025-05-05 12:23] VITALS: BP 96/54; PULSE 40; RESP 16; TEMP 36.1; O2SAT 97
[2025-05-05 12:51] VITALS: BP 111/61; PULSE 40; RESP 16; TEMP 36.4; O2SAT 99
--- NOTE | 2025-05-05 22:39 | OP_ITS ---
DATE OF SERVICE: 05/05/2025 SURGEON: Luther Duke MD INDICATIONS: Colon cancer screening. PREOPERATIVE DIAGNOSIS: POSTOPERATIVE DIAGNOSIS: PROCEDURE PERFORMED: Colonoscopy to the terminal ileum. ESTIMATED BLOOD LOSS: COMPLICATIONS: ANESTHESIA: ASSISTANTS: SPECIMENS: MEDICATIONS: Monitored anesthesia care. DESCRIPTION OF PROCEDURE: A history and physical performed. The risks and benefits of the procedure were explained to the patient and informed consent was obtained. The patient was placed in the left lateral decubitus position. A digital rectal exam was performed and was found to be normal. The Olympus pediatric video colonoscope was introduced into the rectum and advanced to the cecum. The cecum was identified by transillumination, palpation, and identification of ileocecal valve. Examination was performed. The scope was removed. He tolerated the procedure well and was returned to recovery in stable condition. FINDINGS: The terminal ileum was examined and appeared normal. The visualized colonic mucosa was within normal limits without evidence of masses or ulcers. No polyps were identified. The quality of the prep was good. Retroflexed examination showed moderate-sized internal hemorrhoids. IMPRESSION: Colon polyp. RECOMMENDATION: 1. Follow up as needed. 2. Repeat colonoscopy is recommended in 10 years for average-risk individuals. MD MARIBELL Muse/LEANA / [id number]
== END 2025-05-05 13:03 | disposition home or self-care (01) ==
PROVIDERS: PCP Registered Nurse; Visit Provider Internal Medicine Gastroenterology
PROC: 0DJD8ZZ Inspection of Lower Intestinal Tract, Via Natural or Artificial Opening Endoscopic (ICD-10-PCS; CPT 45378; principal; 2025-05-05 11:40)
DX: Z12.11 Encounter for screening for malignant neoplasm of colon (principal); K64.8 Other hemorrhoids; R00.1 Bradycardia, unspecified; M54.30 Sciatica, unspecified side; Z79.1 Long term (current) use of non-steroidal anti-inflammatories (NSAID); Z79.899 Other long term (current) drug therapy; Z98.890 Other specified postprocedural states; Z87.891 Personal history of nicotine dependence
CPT/HCPCS: 45378; J2003; J2704; J3010